=== PATIENT | male | born 1955 | race Caucasian/White ===

== ENCOUNTER 2018-12-16 10:36 | Inpatient (IN) ==
[2018-12-16 11:40] LABS: Baso # (Auto) 0.1 th/mm3 (0.0-0.2); Baso % (Auto) 0.7 % (0.0-2.0); Hematocrit 46.6 % (39.0-51.0); Hemoglobin 15.9 gm/dL (13.0-17.0); Lymph # (Auto) 0.8 th/mm3 (1.0-4.8); Lymph % (Auto) 5.7 % (9.0-44.0); Mean Corpuscular HGB Conc 34.2 % (32.0-36.0); Mean Corpuscular Hemoglobin 29.8 pg (27.0-34.0); Mean Corpuscular Volume 87.1 fL (80.0-100.0); Mean Platelet Volume 7.8 fL (7.0-11.0); Mono % (Auto) 7.5 % (0.0-8.0); Neut # (Auto) 11.7 th/mm3 (1.8-7.7); Neut % (Auto) 86.1 % (16.0-70.0); Platelet Count 353 th/mm3 (150-450); Red Blood Count 5.35 mil/mm3 (4.50-5.90); White Blood Count 13.6 th/mm3 (4.0-11.0)
[2018-12-16 11:50] LABS: Activated Partial Thrombo Time 30.1 sec (23.4-31.7); INR 1.1 Ratio; Prothrombin Time 11.4 sec (9.8-11.6)
[2018-12-16] MEDS ORDERED: Midazolam Inj 5 MG/ML 1 ML Vial IV.PUSH ONE (11:51)
[2018-12-16 12:03] LABS: Albumin 4.2 g/dL (3.4-5.0); Anion Gap 15 meq/L (5-15); Aspartate Aminotransferase 24 U/L (15-37); Blood Urea Nitrogen 38 mg/dL (7-18); Calcium 9.9 mg/dL (8.5-10.1); Carbon Dioxide 23.2 meq/L (21.0-32.0); Chloride 103 meq/L (98-107); Glomerular Filtration Rate 49 mL/min (>89); Glucose,Random 115 mg/dL (74-106); Potassium 3.5 meq/L (3.5-5.1); Sodium 141 meq/L (136-145)
[2018-12-16 12:04] LABS: Alanine Aminotransferase 17 U/L (12-78)
--- NOTE | 2018-12-16 12:11 | CT ---
EXAM DATE: 12/16/2018 12:08 PM EST AGE/SEX: 63 years / Male INDICATIONS: Altered mental status. CLINICAL DATA: This is the patient's initial encounter. Patient reports that signs and symptoms have been present for 2 days and indicates a pain score of 0/10. MEDICAL/SURGICAL HISTORY: . 0 . RADIATION DOSE: 53.35 CTDI (mGy) [place] [facility] [place]20/[place]. . TECHNIQUE: CT of the head without contrast. Using automated exposure control and adjustment of the mA and/or kV according to patient size, radiation dose was kept as low as reasonably achievable to ob tain optimal diagnostic quality images. DICOM format image data is available electronically for revi ew and comparison. FINDINGS: There is central and cortical atrophy with dilatation of ventricular and sulcal spaces. There is no parenchymal hemorrhage, acute infarction or mass lesion identified. Probable old infarct left parieta l occipital region. There are no extra-axial fluid collections appreciated. Significant periventricul ar white matter changes are noted. The posterior fossa is unremarkable with midline fourth ventricle. The portion of the orbits and paranasal sinuses visualized are unremarkable. Extensive basilar arter y calcifications are evident. CONCLUSION: Atrophy, significant periventricular white matter changes, otherwise negative. Christopher Thomas MD FACR . . Electronically signed by: Christopher Thomas MD Board Certified Radiologist 12/16/2018 12:10 PM EST
[2018-12-16 12:14] LABS: Alkaline Phosphatase 84 U/L (45-117); Total Protein 8.5 g/dL (6.4-8.2)
--- NOTE | 2018-12-16 12:15 | XR ---
EXAM DATE: 12/16/2018 12:03 PM EST AGE/SEX: 63 years / Male INDICATIONS: Altered mental status. CLINICAL DATA: This is the patient's initial encounter. Patient reports that signs and symptoms have been present for 1 day and indicates a pain score of Nonresponsive. MEDICAL/SURGICAL HISTORY: Non-responsive. Non-responsive. COMPARISON: No prior exams available for comparison. FINDINGS: Thoracolumbar scoliosis. Asymmetrical apical parenchymal changes. Mild left ventricular hypertrophy No infiltrate or failure. Degenerative changes about both shoulders. CONCLUSION: Asymmetrical apical parenchymal changes worse on the right. Otherwise negative Electronically signed by: Christopher Thomas MD Board Certified Radiologist 12/16/2018 12:13 PM EST
--- NOTE | 2018-12-16 12:35 | CT ---
EXAM DATE: 12/16/2018 12:31 PM EST AGE/SEX: 63 years / Male INDICATIONS: Altered mental status Thrombosis. CLINICAL DATA: This is the patient's initial encounter. Patient reports that signs and symptoms have been present for 2 days and indicates a pain score of 0/10. MEDICAL/SURGICAL HISTORY: . 0 . 0 RADIATION DOSE: 10.05 CTDI (mGy) COMPARISON: [facility] – [place] BRAIN W/O CONTRAST, 05/20/2015. . TECHNIQUE: Volumetric scanning was performed using a multi-row detector CT scanner during bolus infu goldy of 70 ml Omnipaque 350 (iohexol) nonionic water-soluble contrast as a cumulative dose for multi ple exams. The data was post processed with a variety of visualization algorithms including full vo lume maximum intensity projection, multi-planar sliding thin slab reformation, curved planar reformat ion, and surface rendering techniques. Using automated exposure control and adjustment of the mA and /or kV according to patient size, radiation dose was kept as low as reasonably achievable to obtain o ptimal diagnostic quality images. DICOM format image data is available electronically for review and comparison. FINDINGS: There is excellent visualization of the major intracranial arteries out to the second-order branch ve ssels. There is no evidence for aneurysm, vessel truncation or stenosis, and no evidence for vascula r malformation. Minimal apparent calcific plaque mid right vertebral artery. CONCLUSION: 1. Negative for major branch vessel occlusion. . . Electronically signed by: Christopher Thomas MD Board Certified Radiologist 12/16/2018 12:34 PM EST
--- NOTE | 2018-12-16 12:47 | CT ---
EXAM DATE: 12/16/2018 12:41 PM EST AGE/SEX: 63 years / Male INDICATIONS: Altered mental status Thrombosis. CLINICAL DATA: This is the patient's initial encounter. Patient reports that signs and symptoms have been present for 2 days and indicates a pain score of 0/10. MEDICAL/SURGICAL HISTORY: . 0 . 0 RADIATION DOSE: 10.05 CTDI (mGy) COMPARISON: No prior exams available for comparison. TECHNIQUE: Volumetric scanning was performed using a multirow detector CT scanner during bolus infus ion of 70 ml Omnipaque 350 (iohexol) nonionic water-soluble contrast as a cumulative dose for multip le exams. The data was postprocessed with a variety of visualization algorithms including full-volu me maximum intensity projection, multiplanar sliding thin-slab reformation, curved-planar reformation , and surface-rendering techniques. Using automated exposure control and adjustment of the mA and/or kV according to patient size, radiation dose was kept as low as reasonably achievable to obtain opti mal diagnostic quality images. DICOM format image data is available electronically for review and co mparison. FINDINGS: Aortic Arch: Minimal calcific plaque at the origin of the right innominate and left subclavian arter y. Right Carotid: Minimal extraluminal calcific plaque origin of the right internal carotid without ulc eration or stenosis. Left Carotid: Similar calcific plaque is seen on the left external the lumen without calcification o r stenosis. Vertebrals: Minimal calcific plaque mid left vertebral without stenosis. Basilar artery is patent. Percent stenosis is calculated using the diameter of the stenotic region over the diameter of the nor mal distal internal carotid artery. CONCLUSION: 1. Minimal atherosclerotic calcific vascular disease. No hemodynamically significant stenosis Electronically signed by: Christopher Thomas MD Board Certified Radiologist 12/16/2018 12:46 PM EST
--- NOTE | 2018-12-16 13:07 | MR ---
EXAM DATE: 12/16/2018 12:36 PM EST AGE/SEX: 63 years / Male INDICATIONS: CVA. CLINICAL DATA: This is the patient's initial encounter. Patient reports that signs and symptoms have been present for 1 day and indicates a pain score of 0/10. MEDICAL/SURGICAL HISTORY: None. None. COMPARISON: [facility] – [place], CTA HEAD W CONTRAST W 3D, 12/16/2018. . TECHNIQUE: Multiplanar, multisequence examination of the brain was performed without contrast. FINDINGS: There is extensive restricted diffusion in the distribution of the left middle cerebral artery indica ting acute infarct. This involves the anterior and posterior divisions. There is correlating signal a bnormality on the T2-weighted images and correlating signal abnormality on the ADC map images. No dinorah dence of significant mass effect or midline shift. Ventricles, sulci, and cisterns are mildly promine nt indicating diffuse atrophy. Chronic small vessel white matter ischemic change noted. Multiple smal l foci of magnetic susceptibility artifact scattered diffusely indicating history of microhemorrhages . No evidence of acute intracranial hemorrhage. No intracranial mass lesion. CONCLUSION: 1. Restricted diffusion and left MCA distribution indicating acute left MCA infarct. 2. No evidence of mass effect or herniation. Findings were discussed with Dr. Moore by Dr. Darden. Electronically signed by: Grant Oneal MD Board Certified Radiologist 12/16/2018 2:55 PM EST
[2018-12-16] MEDS ORDERED: Labetalol HCl Inj 100 MG/20 ML Vial IV.PUSH PRN ×2 (13:12→16:54)
[2018-12-16] MEDS ORDERED: Dextrose 50% in Water 50 ML Vial IV.PUSH PRN (13:12)
--- NOTE | 2018-12-16 13:13 | ED ---
HPI General Chief complaint: Neuro Symptoms/Deficit Stated complaint: Poss neuro/evac Time Seen by Provider: 12/16/18 10:58 History of Present Illness HPI narrative: Patient is a 63-year-old male presents emergency department inability to talk and "not being all there" for the past 3 days. It Tuesday now and according to family the patient on Tuesday had not been able to speak. Since yesterday he has been acting like he is not "all there". That was about 10 AM in the morning yesterday. On arrival patient is a phasic and unable to give any history. Is calmly by his and his father, father states that he never goes to the physician has not had a checkup in years. He does not drink but he does smoke. He does not use any substances. Family states prior to this he was just fine. Additional history is limited secondary to patient's altered mental status Related Data Home Medications Medication Instructions Recorded Confirmed No Known Home Medications 12/16/18 12/16/18 Allergies Allergy/AdvReac Type Severity Reaction Status Date / Time No Known Allergies Allergy Verified 12/16/18 13:02 Review of Systems ROS: all other systems reviewed are negative [facility] Medical History Medical History Chronic back pain (Acute) Tobacco abuse (Acute) Surgical History Surgical History No history of previous surgery (Acute) Family History Family History Father Stroke Mother Pulmonary embolism Sister Spina bifida Other Family history non-contributory Social History Social History Substance History: Active Abuse Second Hand Smoke Exposure: Yes Smoking Status: Current every day smoker Tobacco Type: Cigarettes How Often Do You Have a Drink Containing Alcohol: Never Recent Travel in [facility] within the Last 8 Weeks: No Recent Out of Country Travel within the Last 8 Weeks: No Substance Abuse Detail Marijuana: Substance Use Status: Active Route Used Substance Abuse: Inhalation Immunization History Tetanus Immunization: Unsure Exam Narrative Exam Narrative: GENERAL: WD/thin, clearly altered SKIN: Focused skin assessment warm/dry. HEAD: Atraumatic. Normocephalic. EYES: Pupils equal and round. No scleral icterus. No injection or drainage. ENT: No nasal bleeding or discharge. Mucous membranes pink and moist. NECK: Trachea midline. No JVD. CARDIOVASCULAR: Regular rate and rhythm. No murmur appreciated. RESPIRATORY: No accessory muscle use. Clear to auscultation. Breath sounds equal bilaterally. GASTROINTESTINAL: Abdomen soft, non-tender, nondistended. Hepatic and splenic margins not palpable. MUSCULOSKELETAL: No obvious deformities. No clubbing. No cyanosis. No edema. NEUROLOGICAL: Awake and alert. Clearly confused, GCS is [id number], patient moves all 4 extremities, he will therapy coordinator my hands when asked and is little weak on the right side 4 out of 5, he will not participate with drift testing, we will not participate with cranial nerve testing and will not open his mouth when asked. His NIH is therefore difficult to interpret but is at least 8. PSYCHIATRIC: Unable to assess Course Initial Documented Vital Signs Temperature 98.8 F 12/16/18 10:46 Pulse Rate 97 H 12/16/18 10:46 Respiratory Rate 16 12/16/18 10:46 Blood Pressure 211/146 H 12/16/18 10:46 Pulse Oximetry 96 12/16/18 10:46 Last Documented Vital Signs Temperature 98.2 F 12/18/18 16:00 Pulse Rate 101 H 12/18/18 17:00 Respiratory Rate 34 H 12/18/18 17:00 Blood Pressure 147/93 H 12/18/18 17:00 Pulse Oximetry 97 12/18/18 17:00 Critical Care Time Critical Care Time: Yes Total Critical Care Time: 35 Attestation: Aggregate critical care time was 35 minutes. Time to perform other separately billable procedures was not included in the critical care time. My time did not include minutes spent treating any other patients simultaneously or on activities that did not directly contribute to the patient's treatment. The services I provided to this patient were to treat and/or prevent clinically significant deterioration that could result in: , disability, organ failure I provided critical care services requiring my management, as noted below: Chart data review, documentation time, medication orders and management, vital sign assessments/reviewing monitor data, ordering and reviewing lab tests, ordering and interpreting/reviewing x-rays and diagnostic studies, care of the patient and discussion of the patient with the admitting physicians. NIH Stroke Scale NIH Stroke Scale Level of Consciousness: 0-Alert Orientation Questions: 2-Neither task correct Responds to Commands: 2-Neither task correct Gaze Eye Movement: 1-Partial gaze palsy Visual Gee: 0-No visual field defect Facial Movement: 0-Normal Motor Functions Arm LEFT: 0-No drift Motor Functions Arm RIGHT: 0-No drift Motor Functions Leg LEFT: 0-No drift Motor Functions Leg RIGHT: 0-No drift Limb Ataxia: 0-No ataxia Sensory Loss: 0-No sensory loss Best Language: 3-Mute or global aphasia Articulation: UN-Intubated / Barriers Extinction or Inattention Sensory: 0-Absent Total: 8 Medical Decision Making MDM Narrative Medical decision making narrative: Patient room to the emergency department, does not meet stroke alert criteria is a symptoms been going on for 2-3 days. Apparently acutely worsened yesterday but again that was more than 24 hours ago. Patient was taken his expediently as possible to CAT scan CTA of the head and neck negative, MRI does show acute left hemispheric MCA type stroke. Patient was discussed at length with Desiree Coates and the hospiatlist The latter will admit. Patient will be given aspirin, normal saline bolus for his probable dehydration as he has not been taking good p.o. Medical Screen Exam Complete: Yes Emergency Medical Condition: Yes Lab Data Result diagrams: 12/18/18 08:09 12/18/18 08:09 Lab Results 12/16/18 12/16/18 12/16/18 Range/Units 11:15 11:15 11:15 WBC 13.6 H (4.0-11.0) th/mm3 RBC 5.35 (4.50-5.90) mil/mm3 Hgb 15.9 (13.0-17.0) gm/dL Hct 46.6 (39.0-51.0) % MCV 87.1 (80.0-100.0) fL MCH 29.8 (27.0-34.0) pg MCHC 34.2 (32.0-36.0) % RDW 15.0 (11.6-17.2) % Plt Count 353 (150-450) th/mm3 MPV 7.8 (7.0-11.0) fL Prelim Diff (Auto) Neut % (Auto) 86.1 H (16.0-70.0) % Lymph % (Auto) 5.7 L (9.0-44.0) % [place] % (Auto) 7.5 (0.0-8.0) % Eos % (Auto) 0.0 (0.0-4.0) % Baso % (Auto) 0.7 (0.0-2.0) % Neut # (Auto) 11.7 H (1.8-7.7) th/mm3 Lymph # (Auto) 0.8 L (1.0-4.8) th/mm3 [place] # (Auto) 1.0 H (0.0-0.9) th/mm3 Eos # (Auto) 0.0 (0.0-0.4) th/mm3 Baso # (Auto) 0.1 (0.0-0.2) th/mm3 WBC Differential . Seg Neuts % (Manual) (16-70) % Band Neuts % (Manual) (0-6) % Monocytes % (Manual) (0-8) % Abs Neuts (Manual) (1.8-7.7) th/mm3 Differential Comment Auto diff final Platelet Estimate (Normal) Platelet Morphology (Normal) PT 11.4 (9.8-11.6) sec INR 1.1 Ratio APTT 30.1 (23.4-31.7) sec Sodium 141 (136-145) meq/L Potassium 3.5 (3.5-5.1) meq/L Chloride 103 (98-107) meq/L Carbon Dioxide 23.2 (21.0-32.0) meq/L Anion Gap 15 (5-15) meq/L BUN 38 H (7-18) mg/dL Creatinine 1.45 H (0.60-1.30) mg/dL Estimated GFR 49 L (>89) mL/min POC Glucose (68-110) mg/dl Random Glucose 115 H (74-106) mg/dL Hemoglobin A1c (4.3-6.0) % Calcium 9.9 (8.5-10.1) mg/dL Phosphorus (2.5-4.9) mg/dL Magnesium 2.0 (1.5-2.5) mg/dL Total Bilirubin 1.5 H (0.2-1.0) mg/dL AST 24 (15-37) U/L ALT 17 (12-78) U/L Alkaline Phosphatase 84 (45-117) U/L Ammonia (11-32) mcmol/L Troponin I Less than 0.02 L (0.02-0.05) ng/mL Total Protein 8.5 H (6.4-8.2) g/dL Albumin 4.2 (3.4-5.0) g/dL TSH 2.180 (0.358-3.740) uIU/mL Urine Color (Yellw/Straw) Urine Clarity (Clear) Urine pH (5.0-8.5) Ur Specific [place] (1.002-1.035) Urine Protein (Neg-Trace) mg/dL Urine Glucose (UA) (Negative) mg/dL Urine Ketones (Negative) mg/dL Urine Occult Blood (Negative) Urine Nitrate (Negative) Urine Bilirubin (Negative) Urine Urobilinogen (Less than 2) mg/dL Ur Leukocyte Esterase (Negative) Urine RBC (0-3) /hpf Urine WBC (0-5) /hpf Hyaline Casts (0-3) /lpf Urine Mucus (Occasional) /lpf Micro UA Comment Ur Microscopic Review Urine Culture Comments Nasal Screen MRSA (PCR) (Negative) 12/16/18 12/16/18 12/16/18 Range/Units 11:15 13:50 20:04 WBC (4.0-11.0) th/mm3 RBC (4.50-5.90) mil/mm3 Hgb (13.0-17.0) gm/dL Hct (39.0-51.0) % MCV (80.0-100.0) fL MCH (27.0-34.0) pg MCHC (32.0-36.0) % RDW (11.6-17.2) % Plt Count (150-450) th/mm3 MPV (7.0-11.0) fL Prelim Diff (Auto) Neut % (Auto) (16.0-70.0) % Lymph % (Auto) (9.0-44.0) % [place] % (Auto) (0.0-8.0) % Eos % (Auto) (0.0-4.0) % Baso % (Auto) (0.0-2.0) % Neut # (Auto) (1.8-7.7) th/mm3 Lymph # (Auto) (1.0-4.8) th/mm3 [place] # (Auto) (0.0-0.9) th/mm3 Eos # (Auto) (0.0-0.4) th/mm3 Baso # (Auto) (0.0-0.2) th/mm3 WBC Differential Seg Neuts % (Manual) (16-70) % Band Neuts % (Manual) (0-6) % Monocytes % (Manual) (0-8) % Abs Neuts (Manual) (1.8-7.7) th/mm3 Differential Comment Platelet Estimate (Normal) Platelet Morphology (Normal) PT (9.8-11.6) sec INR Ratio APTT (23.4-31.7) sec Sodium (136-145) meq/L Potassium (3.5-5.1) meq/L Chloride (98-107) meq/L Carbon Dioxide (21.0-32.0) meq/L Anion Gap (5-15) meq/L BUN (7-18) mg/dL Creatinine (0.60-1.30) mg/dL Estimated GFR (>89) mL/min POC Glucose 141 H (68-110) mg/dl Random Glucose (74-106) mg/dL Hemoglobin A1c (4.3-6.0) % Calcium (8.5-10.1) mg/dL Phosphorus (2.5-4.9) mg/dL Magnesium (1.5-2.5) mg/dL Total Bilirubin (0.2-1.0) mg/dL AST (15-37) U/L ALT (12-78) U/L Alkaline Phosphatase (45-117) U/L Ammonia 18 (11-32) mcmol/L Troponin I (0.02-0.05) ng/mL Total Protein (6.4-8.2) g/dL Albumin (3.4-5.0) g/dL TSH (0.358-3.740) uIU/mL Urine Color Yellow (Yellw/Straw) Urine Clarity Clear (Clear) Urine pH 5.0 (5.0-8.5) Ur Specific [place] 1.035 (1.002-1.035) Urine Protein 30 H (Neg-Trace) mg/dL Urine Glucose (UA) Negative (Negative) mg/dL Urine Ketones 20 (Negative) mg/dL Urine Occult Blood Moderate H (Negative) Urine Nitrate Negative (Negative) Urine Bilirubin Negative (Negative) Urine Urobilinogen Less than 2 (Less than 2) mg/dL Ur Leukocyte Esterase Negative (Negative) Urine RBC 7 H (0-3) /hpf Urine WBC 2 (0-5) /hpf Hyaline Casts 3 (0-3) /lpf Urine Mucus Few H (Occasional) /lpf Micro UA Comment Cath-culture not ind Ur Microscopic Review Not Reportable Urine Culture Comments Cath-cult not ind Nasal Screen MRSA (PCR) (Negative) 12/16/18 12/17/18 12/17/18 Range/Units 22:30 04:55 04:55 WBC 21.6 H D (4.0-11.0) th/mm3 RBC 5.10 (4.50-5.90) mil/mm3 Hgb 15.0 (13.0-17.0) gm/dL Hct 44.5 (39.0-51.0) % MCV 87.4 (80.0-100.0) fL MCH 29.3 (27.0-34.0) pg MCHC 33.6 (32.0-36.0) % RDW 15.1 (11.6-17.2) % Plt Count 331 (150-450) th/mm3 MPV 7.4 (7.0-11.0) fL Prelim Diff (Auto) Neut % (Auto) 88.7 H (16.0-70.0) % Lymph % (Auto) 2.7 L (9.0-44.0) % [place] % (Auto) 7.6 (0.0-8.0) % Eos % (Auto) 0.0 (0.0-4.0) % Baso % (Auto) 1.0 (0.0-2.0) % Neut # (Auto) 19.2 H (1.8-7.7) th/mm3 Lymph # (Auto) 0.6 L (1.0-4.8) th/mm3 [place] # (Auto) 1.6 H (0.0-0.9) th/mm3 Eos # (Auto) 0.0 (0.0-0.4) th/mm3 Baso # (Auto) 0.2 (0.0-0.2) th/mm3 WBC Differential . Seg Neuts % (Manual) (16-70) % Band Neuts % (Manual) (0-6) % Monocytes % (Manual) (0-8) % Abs Neuts (Manual) (1.8-7.7) th/mm3 Differential Comment Auto diff final Platelet Estimate (Normal) Platelet Morphology (Normal) PT (9.8-11.6) sec INR Ratio APTT (23.4-31.7) sec Sodium (136-145) meq/L Potassium (3.5-5.1) meq/L Chloride (98-107) meq/L Carbon Dioxide (21.0-32.0) meq/L Anion Gap (5-15) meq/L BUN (7-18) mg/dL Creatinine (0.60-1.30) mg/dL Estimated GFR (>89) mL/min POC Glucose (68-110) mg/dl Random Glucose (74-106) mg/dL Hemoglobin A1c 5.3 (4.3-6.0) % Calcium (8.5-10.1) mg/dL Phosphorus (2.5-4.9) mg/dL Magnesium (1.5-2.5) mg/dL Total Bilirubin (0.2-1.0) mg/dL AST (15-37) U/L ALT (12-78) U/L Alkaline Phosphatase (45-117) U/L Ammonia (11-32) mcmol/L Troponin I (0.02-0.05) ng/mL Total Protein (6.4-8.2) g/dL Albumin (3.4-5.0) g/dL TSH (0.358-3.740) uIU/mL Urine Color (Yellw/Straw) Urine Clarity (Clear) Urine pH (5.0-8.5) Ur Specific [place] (1.002-1.035) Urine Protein (Neg-Trace) mg/dL Urine Glucose (UA) (Negative) mg/dL Urine Ketones (Negative) mg/dL Urine Occult Blood (Negative) Urine Nitrate (Negative) Urine Bilirubin (Negative) Urine Urobilinogen (Less than 2) mg/dL Ur Leukocyte Esterase (Negative) Urine RBC (0-3) /hpf Urine WBC (0-5) /hpf Hyaline Casts (0-3) /lpf Urine Mucus (Occasional) /lpf Micro UA Comment Ur Microscopic Review Urine Culture Comments Nasal Screen MRSA (PCR) Not detected (Negative) 12/17/18 12/17/18 12/17/18 Range/Units 04:55 04:55 08:39 WBC (4.0-11.0) th/mm3 RBC (4.50-5.90) mil/mm3 Hgb (13.0-17.0) gm/dL Hct (39.0-51.0) % MCV (80.0-100.0) fL MCH (27.0-34.0) pg MCHC (32.0-36.0) % RDW (11.6-17.2) % Plt Count (150-450) th/mm3 MPV (7.0-11.0) fL Prelim Diff (Auto) Neut % (Auto) (16.0-70.0) % Lymph % (Auto) (9.0-44.0) % [place] % (Auto) (0.0-8.0) % Eos % (Auto) (0.0-4.0) % Baso % (Auto) (0.0-2.0) % Neut # (Auto) (1.8-7.7) th/mm3 Lymph # (Auto) (1.0-4.8) th/mm3 [place] # (Auto) (0.0-0.9) th/mm3 Eos # (Auto) (0.0-0.4) th/mm3 Baso # (Auto) (0.0-0.2) th/mm3 WBC Differential Seg Neuts % (Manual) (16-70) % Band Neuts % (Manual) (0-6) % Monocytes % (Manual) (0-8) % Abs Neuts (Manual) (1.8-7.7) th/mm3 Differential Comment Platelet Estimate (Normal) Platelet Morphology (Normal) PT 11.7 H (9.8-11.6) sec INR 1.2 Ratio APTT 29.9 (23.4-31.7) sec Sodium 146 H (136-145) meq/L Potassium 3.1 L (3.5-5.1) meq/L Chloride 112 H D (98-107) meq/L Carbon Dioxide 22.9 (21.0-32.0) meq/L Anion Gap 11 (5-15) meq/L BUN 27 H (7-18) mg/dL Creatinine 1.07 (0.60-1.30) mg/dL Estimated GFR 70 L (>89) mL/min POC Glucose 129 H (68-110) mg/dl Random Glucose 120 H (74-106) mg/dL Hemoglobin A1c (4.3-6.0) % Calcium 8.7 D (8.5-10.1) mg/dL Phosphorus 1.6 L (2.5-4.9) mg/dL Magnesium 1.7 (1.5-2.5) mg/dL Total Bilirubin 2.2 H (0.2-1.0) mg/dL AST 39 H (15-37) U/L ALT 20 (12-78) U/L Alkaline Phosphatase 77 (45-117) U/L Ammonia (11-32) mcmol/L Troponin I (0.02-0.05) ng/mL Total Protein 7.7 D (6.4-8.2) g/dL Albumin 3.8 (3.4-5.0) g/dL TSH (0.358-3.740) uIU/mL Urine Color (Yellw/Straw) Urine Clarity (Clear) Urine pH (5.0-8.5) Ur Specific [place] (1.002-1.035) Urine Protein (Neg-Trace) mg/dL Urine Glucose (UA) (Negative) mg/dL Urine Ketones (Negative) mg/dL Urine Occult Blood (Negative) Urine Nitrate (Negative) Urine Bilirubin (Negative) Urine Urobilinogen (Less than 2) mg/dL Ur Leukocyte Esterase (Negative) Urine RBC (0-3) /hpf Urine WBC (0-5) /hpf Hyaline Casts (0-3) /lpf Urine Mucus (Occasional) /lpf Micro UA Comment Ur Microscopic Review Urine Culture Comments Nasal Screen MRSA (PCR) (Negative) 12/17/18 12/17/18 12/17/18 Range/Units 12:39 17:29 19:42 WBC (4.0-11.0) th/mm3 RBC (4.50-5.90) mil/mm3 Hgb (13.0-17.0) gm/dL Hct (39.0-51.0) % MCV (80.0-100.0) fL MCH (27.0-34.0) pg MCHC (32.0-36.0) % RDW (11.6-17.2) % Plt Count (150-450) th/mm3 MPV (7.0-11.0) fL Prelim Diff (Auto) Neut % (Auto) (16.0-70.0) % Lymph % (Auto) (9.0-44.0) % [place] % (Auto) (0.0-8.0) % Eos % (Auto) (0.0-4.0) % Baso % (Auto) (0.0-2.0) % Neut # (Auto) (1.8-7.7) th/mm3 Lymph # (Auto) (1.0-4.8) th/mm3 [place] # (Auto) (0.0-0.9) th/mm3 Eos # (Auto) (0.0-0.4) th/mm3 Baso # (Auto) (0.0-0.2) th/mm3 WBC Differential Seg Neuts % (Manual) (16-70) % Band Neuts % (Manual) (0-6) % Monocytes % (Manual) (0-8) % Abs Neuts (Manual) (1.8-7.7) th/mm3 Differential Comment Platelet Estimate (Normal) Platelet Morphology (Normal) PT (9.8-11.6) sec INR Ratio APTT (23.4-31.7) sec Sodium 149 H (136-145) meq/L Potassium 3.4 L (3.5-5.1) meq/L Chloride 116 H (98-107) meq/L Carbon Dioxide 20.6 L (21.0-32.0) meq/L Anion Gap 12 (5-15) meq/L BUN 25 H (7-18) mg/dL Creatinine 1.13 (0.60-1.30) mg/dL Estimated GFR 66 L (>89) mL/min POC Glucose 123 H 127 H (68-110) mg/dl Random Glucose 116 H (74-106) mg/dL Hemoglobin A1c (4.3-6.0) % Calcium 8.5 (8.5-10.1) mg/dL Phosphorus 2.4 L (2.5-4.9) mg/dL Magnesium 2.0 (1.5-2.5) mg/dL Total Bilirubin 3.3 H (0.2-1.0) mg/dL AST 49 H (15-37) U/L ALT 22 (12-78) U/L Alkaline Phosphatase 68 (45-117) U/L Ammonia (11-32) mcmol/L Troponin I (0.02-0.05) ng/mL Total Protein 7.0 D (6.4-8.2) g/dL Albumin 3.3 L (3.4-5.0) g/dL TSH (0.358-3.740) uIU/mL Urine Color (Yellw/Straw) Urine Clarity (Clear) Urine pH (5.0-8.5) Ur Specific [place] (1.002-1.035) Urine Protein (Neg-Trace) mg/dL Urine Glucose (UA) (Negative) mg/dL Urine Ketones (Negative) mg/dL Urine Occult Blood (Negative) Urine Nitrate (Negative) Urine Bilirubin (Negative) Urine Urobilinogen (Less than 2) mg/dL Ur Leukocyte Esterase (Negative) Urine RBC (0-3) /hpf Urine WBC (0-5) /hpf Hyaline Casts (0-3) /lpf Urine Mucus (Occasional) /lpf Micro UA Comment Ur Microscopic Review Urine Culture Comments Nasal Screen MRSA (PCR) (Negative) 12/17/18 12/18/18 12/18/18 Range/Units 21:19 08:09 08:09 WBC 30.1 H (4.0-11.0) th/mm3 RBC 4.67 (4.50-5.90) mil/mm3 Hgb 14.1 (13.0-17.0) gm/dL Hct 39.9 (39.0-51.0) % MCV 85.3 (80.0-100.0) fL MCH 30.2 (27.0-34.0) pg MCHC 35.4 (32.0-36.0) % RDW 15.1 (11.6-17.2) % Plt Count 289 (150-450) th/mm3 MPV 7.8 (7.0-11.0) fL Prelim Diff (Auto) Slide review pending Neut % (Auto) 93.5 H (16.0-70.0) % Lymph % (Auto) 1.8 L (9.0-44.0) % [place] % (Auto) 4.5 (0.0-8.0) % Eos % (Auto) 0.0 (0.0-4.0) % Baso % (Auto) 0.2 (0.0-2.0) % Neut # (Auto) 28.1 H (1.8-7.7) th/mm3 Lymph # (Auto) 0.6 L (1.0-4.8) th/mm3 [place] # (Auto) 1.3 H (0.0-0.9) th/mm3 Eos # (Auto) 0.0 (0.0-0.4) th/mm3 Baso # (Auto) 0.1 (0.0-0.2) th/mm3 WBC Differential Manual diff final Seg Neuts % (Manual) 95 H (16-70) % Band Neuts % (Manual) 1 (0-6) % Monocytes % (Manual) 4 (0-8) % Abs Neuts (Manual) 28.9 H (1.8-7.7) th/mm3 Differential Comment . Platelet Estimate Normal (Normal) Platelet Morphology Normal (Normal) PT (9.8-11.6) sec INR Ratio APTT (23.4-31.7) sec Sodium 150 H (136-145) meq/L Potassium 3.2 L (3.5-5.1) meq/L Chloride 119 H (98-107) meq/L Carbon Dioxide 21.0 (21.0-32.0) meq/L Anion Gap 10 (5-15) meq/L BUN 31 H (7-18) mg/dL Creatinine 1.19 (0.60-1.30) mg/dL Estimated GFR 62 L (>89) mL/min POC Glucose 138 H (68-110) mg/dl Random Glucose 135 H (74-106) mg/dL Hemoglobin A1c (4.3-6.0) % Calcium 8.4 L (8.5-10.1) mg/dL Phosphorus 2.8 (2.5-4.9) mg/dL Magnesium 1.9 (1.5-2.5) mg/dL Total Bilirubin 3.8 H (0.2-1.0) mg/dL AST 52 H (15-37) U/L ALT 20 (12-78) U/L Alkaline Phosphatase 71 (45-117) U/L Ammonia (11-32) mcmol/L Troponin I (0.02-0.05) ng/mL Total Protein 7.1 (6.4-8.2) g/dL Albumin 3.1 L (3.4-5.0) g/dL TSH (0.358-3.740) uIU/mL Urine Color (Yellw/Straw) Urine Clarity (Clear) Urine pH (5.0-8.5) Ur Specific [place] (1.002-1.035) Urine Protein (Neg-Trace) mg/dL Urine Glucose (UA) (Negative) mg/dL Urine Ketones (Negative) mg/dL Urine Occult Blood (Negative) Urine Nitrate (Negative) Urine Bilirubin (Negative) Urine Urobilinogen (Less than 2) mg/dL Ur Leukocyte Esterase (Negative) Urine RBC (0-3) /hpf Urine WBC (0-5) /hpf Hyaline Casts (0-3) /lpf Urine Mucus (Occasional) /lpf Micro UA Comment Ur Microscopic Review Urine Culture Comments Nasal Screen MRSA (PCR) (Negative) 12/18/18 12/18/18 Range/Units 08:24 11:10 WBC (4.0-11.0) th/mm3 RBC (4.50-5.90) mil/mm3 Hgb (13.0-17.0) gm/dL Hct (39.0-51.0) % MCV (80.0-100.0) fL MCH (27.0-34.0) pg MCHC (32.0-36.0) % RDW (11.6-17.2) % Plt Count (150-450) th/mm3 MPV (7.0-11.0) fL Prelim Diff (Auto) Neut % (Auto) (16.0-70.0) % Lymph % (Auto) (9.0-44.0) % [place] % (Auto) (0.0-8.0) % Eos % (Auto) (0.0-4.0) % Baso % (Auto) (0.0-2.0) % Neut # (Auto) (1.8-7.7) th/mm3 Lymph # (Auto) (1.0-4.8) th/mm3 [place] # (Auto) (0.0-0.9) th/mm3 Eos # (Auto) (0.0-0.4) th/mm3 Baso # (Auto) (0.0-0.2) th/mm3 WBC Differential Seg Neuts % (Manual) (16-70) % Band Neuts % (Manual) (0-6) % Monocytes % (Manual) (0-8) % Abs Neuts (Manual) (1.8-7.7) th/mm3 Differential Comment Platelet Estimate (Normal) Platelet Morphology (Normal) PT (9.8-11.6) sec INR Ratio APTT (23.4-31.7) sec Sodium (136-145) meq/L Potassium (3.5-5.1) meq/L Chloride (98-107) meq/L Carbon Dioxide (21.0-32.0) meq/L Anion Gap (5-15) meq/L BUN (7-18) mg/dL Creatinine (0.60-1.30) mg/dL Estimated GFR (>89) mL/min POC Glucose 125 H 124 H (68-110) mg/dl Random Glucose (74-106) mg/dL Hemoglobin A1c (4.3-6.0) % Calcium (8.5-10.1) mg/dL Phosphorus (2.5-4.9) mg/dL Magnesium (1.5-2.5) mg/dL Total Bilirubin (0.2-1.0) mg/dL AST (15-37) U/L ALT (12-78) U/L Alkaline Phosphatase (45-117) U/L Ammonia (11-32) mcmol/L Troponin I (0.02-0.05) ng/mL Total Protein (6.4-8.2) g/dL Albumin (3.4-5.0) g/dL TSH (0.358-3.740) uIU/mL Urine Color (Yellw/Straw) Urine Clarity (Clear) Urine pH (5.0-8.5) Ur Specific [place] (1.002-1.035) Urine Protein (Neg-Trace) mg/dL Urine Glucose (UA) (Negative) mg/dL Urine Ketones (Negative) mg/dL Urine Occult Blood (Negative) Urine Nitrate (Negative) Urine Bilirubin (Negative) Urine Urobilinogen (Less than 2) mg/dL Ur Leukocyte Esterase (Negative) Urine RBC (0-3) /hpf Urine WBC (0-5) /hpf Hyaline Casts (0-3) /lpf Urine Mucus (Occasional) /lpf Micro UA Comment Ur Microscopic Review Urine Culture Comments Nasal Screen MRSA (PCR) (Negative) Imaging Data Radiologist's impression: Head CT 12/16/18 11:09 CONCLUSION: Atrophy, significant periventricular white matter changes, otherwise negative. Christopher Thomas MD FACR . . Chest X-Ray 12/16/18 11:23 CONCLUSION: Asymmetrical apical parenchymal changes worse on the right. Otherwise negative Head CTA 12/16/18 12:04 CONCLUSION: 1. Negative for major branch vessel occlusion. . . Neck CTA 12/16/18 12:04 CONCLUSION: 1. Minimal atherosclerotic calcific vascular disease. No hemodynamically significant stenosis Head MRI 12/16/18 12:20 CONCLUSION: 1. Restricted diffusion and left MCA distribution indicating acute left MCA infarct. 2. No evidence of mass effect or herniation. Findings were discussed with Dr. Moore by Dr. Darden. Head CT 12/18/18 06:00 CONCLUSION: 1. Evolving left middle cerebral artery distribution infarct. 2. No midline shift. . . Chest X-Ray 12/18/18 09:33 CONCLUSION: Suspected edema in the mid and lower lungs. Discharge Plan Discharge Disposition Patient Disposition: ED Admit(ED Internal Use Only) Discharge Condition Condition: Fair Discharge Order Discharge Orders: Discharge Order (Routine); Ordered 12/18/18 Ordered By: Rocky Haskins ED Use Only Admit Order (Routine); Ordered 12/16/18 Ordered By: Nadeem Bravo Physicians Team ED Provider: Nadeem Bravo Primary Care Provider: Primary Care Shyann Hannon Attending Provider: Manny Huizar Other Providers: Shaun Ramírez ; Evaristo Hoffman Arlen R Status ED Status: Left Department Discharge Information Discharge Date/Time: 12/16/18 15:17
[2018-12-16] MEDS ORDERED: Sod Chloride 0.9% Inj 1,000 ML IV.SIG SCH (13:15)
--- NOTE | 2018-12-16 13:16 | P.HPCC ---
History of Present Illness Service: Critical care medicine Primary Care Physician: No Primary Care Physician Chief Complaint: Altered mental status History of Present Illness: This is a 63-year-old male. Admission 12/16/2018. Past medical history is ongoing tobacco abuse. Patient presents to [facility] with a chief complaint per family of "unable to speaking "not all there, since Tuesday. Onset of symptoms was on Tuesday. They significantly worsened yesterday at about 10 AM. He is currently aphasic and unable to give history. On examination, patient does have a facial droop right-sided #does not stick out tongue.. Strength appears to be slightly weaker right compared to left. Right lower left lower extremity is unable to properly assess due to noncompliance. Unable to assess pronator drift due to noncompliance. Sensation difficult to assess. Unable to test gait. MRI of the brain revealed distal left MCA embolic phenomenon involving the left sylvian region. Possible recanalization of embolization of distal left M1 vessel. Likely embolic source. CT angiogram the head and neck was essentially normal with exception of possible embolic phenomenon involving the left distal M1 segment Is currently having transmitted upper airway sounds like new secretions. He is hypertensive. He received aspirin in the ED. We were asked to admit. - Diagnosis (1) CVA (cerebral vascular accident) (2) Leukocytosis (3) Acute kidney injury (4) Total bilirubin, elevated (5) Tobacco abuse Estimated Total Length of Stay (Days): 5 Plans for Post Hospital Care: Not yet determined Review of Systems unobtainable due to mental status PMFSH - History History Provided By: Family Member - Medical History Medical History: Medical History (Last Reviewed 12/16/18 @ 13:51 by Elida Li Speech Pathology Teacher, SUPERVISOR TUBING) Tobacco abuse - Surgical History Surgical History: Surgical History (Last Reviewed 12/16/18 @ 13:37 by Manny Huizar MD) No history of previous surgery - Family History Family History: Family History (Last Updated 12/16/18 @ 13:37 by Manny Huizar MD) Other Family history non-contributory - Social History I have reviewed the patient's Social History: Yes - Tobacco History Second Hand Smoke Exposure: Yes Tobacco Use In Past 30 Days: Yes Smoking Status: Current every day smoker Tobacco Type: Cigarettes - Alcohol History How Often Do You Have a Drink Containing Alcohol: Never - Substance Use History Substance History: Active Abuse - Substance Use Type Marijuana Status: Active Route Used: Inhalation - Travel History Recent Travel in the [place] Within the Last 8 Weeks: No Recent Travel Out of the Country Within the Last 8 Weeks: No - Immunization History Tetanus Immunization: Unsure Medications and Allergies Active Medications: Active Medications Sodium Chloride (Ns Inj) 1,000 mls @ 1,000 mls/hr IV.SIG BOLUS JOSIAH Stop: 12/16/18 14:14 Sodium Chloride (Ns Flush) 2 ml IV.FLUSH PRN PRN PRN Reason: FLUSH AFTER USING IV ACCESS Allergies Allergy/AdvReac Type Severity Reaction Status Date / Time No Known Allergies Allergy Verified 12/16/18 13:02 Home Medications Medication Instructions Recorded Confirmed Type No Known Home Medications 12/16/18 12/16/18 History Results - Labs CBC & Chem 7: 12/16/18 11:15 12/16/18 11:15 Labs: Short CBC 12/16/18 Range/Units 11:15 WBC 13.6 H (4.0-11.0) th/mm3 Hgb 15.9 (13.0-17.0) gm/dL Hct 46.6 (39.0-51.0) % Plt Count 353 (150-450) th/mm3 BMP 12/16/18 11:15 Sodium 141 Potassium 3.5 Chloride 103 Carbon Dioxide 23.2 BUN 38 H Creatinine 1.45 H Calcium 9.9 Cardiac Enzymes 12/16/18 Range/Units 11:15 Troponin I Less than 0.02 L (0.02-0.05) ng/mL Liver Function 12/16/18 Range/Units 11:15 Total Bilirubin 1.5 H (0.2-1.0) mg/dL AST 24 (15-37) U/L ALT 17 (12-78) U/L Alkaline Phosphatase 84 (45-117) U/L Albumin 4.2 (3.4-5.0) g/dL - Imaging Impressions Head CT 12/16/18 11:09 CONCLUSION: Atrophy, significant periventricular white matter changes, otherwise negative. Christopher Thomas MD FACR . . Chest X-Ray 12/16/18 11:23 CONCLUSION: Asymmetrical apical parenchymal changes worse on the right. Otherwise negative Head CTA 12/16/18 12:04 CONCLUSION: 1. Negative for major branch vessel occlusion. . . Neck CTA 12/16/18 12:04 CONCLUSION: 1. Minimal atherosclerotic calcific vascular disease. No hemodynamically significant stenosis Head MRI 12/16/18 12:20 CONCLUSION: Embolic type disease distal left MCA branches. There could be some recanalized clot in distal M1 on the left. Exam Vital signs: Vital Signs 12/16/18 10:46 Temperature 98.8 F Pulse Rate 97 H Respiratory Rate 16 Blood Pressure 211/146 H Pulse Oximetry 96 Intake & Output 12/15/18 12/16/18 12/16/18 18:59 06:59 18:59 Weight 63.957 kg - Constitutional no acute distress - Routine HEENT Exam Head: Present: normocephalic, atraumatic Eye: Present: EOMI, PERRL, normal accommodation ENT: Present: mucous membranes moist - Routine Neck Exam Present: supple, full ROM. Absent: JVD - Routine Chest/Breast/Axilla Exam Chest wall: Absent: tenderness Breast: Absent: tenderness Axillae: Absent: lymphadenopathy - Routine Respiratory Exam Present: decreased breath sounds, crackles. Absent: accessory muscle use - Routine Cardiovascular Exam Present: RRR, S1, S2. Absent: murmur - Routine Abdominal Exam Present: soft, normoactive bowel sounds - Routine Extremities Exam Absent: cyanosis, clubbing, edema - Routine Skin Exam Present: intact - Routine Neurological Exam Present: alert, motor deficit (Upper 4-5. Left upper quadrant a 5). Absent: oriented X3, CN II-XII intact (Right facial droop), sensory deficit Septic Shock Reassessment Septic shock perfusion: reassessment completed Caprini VTE Risk Assessment Caprini VTE Risk Assessment: Moderate/High Risk (score >= 2) Caprini Risk Assessment Model: Point Value = 1 Point Value = 2 Point Value = 3 Point Value = 5 Age 41-60 Minor surgery BMI > 25 kg/m2 Swollen legs Varicose veins or History of unexplained or recurrent spontaneous Oral contraceptives or hormone replacement Sepsis (< 1 month) Serious lung disease, including pneumonia (< 1 month) Abnormal pulmonary function Acute myocardial infarction Congestive heart failure (< 1 month) History of inflammatory bowel disease Medical patient at bed rest Age 61-74 Arthroscopic surgery Major open surgery (> 45 min) Laparoscopic surgery (> 45 min) Malignancy Confined to bed (> 72 hours) Immobilizing plaster cast Central venous access Age >= 75 History of VTE Family history of VTE Factor V Leiden Prothrombin [id number] Lupus anticoagulant Anticardiolipin antibodies Elevated serum homocysteine Heparin-induced thrombocytopenia Other congenital or acquired thrombophilia Stroke (< 1 month) Elective arthroplasty Hip, pelvis, or leg fracture Acute spinal cord injury (< 1 month) Prophylaxis Regimen: Total Risk Factor Score Risk Level Prophylaxis Regimen 0-1 Low Early ambulation 2 Moderate Order ONE of the following: *Sequential Compression Device (SCD) *Heparin 5000 units SQ BID 3-4 Higher Order ONE of the following medications: *Heparin 5000 units SQ TID *Enoxaparin/Lovenox 40 mg SQ daily (WT < 150 kg, CrCl > 30 mL/min) *Enoxaparin/Lovenox 30 mg SQ daily (WT < 150 kg, CrCl > 10-29 mL/min) *Enoxaparin/Lovenox 30 mg SQ BID (WT < 150 kg, CrCl > 30 mL/min) AND/OR *Sequential Compression Device (SCD) 5 or more Highest Order ONE of the following medications: *Heparin 5000 units SQ TID (Preferred with Epidurals) *Enoxaparin/Lovenox 40 mg SQ daily (WT < 150 kg, CrCl > 30 mL/min) *Enoxaparin/Lovenox 30 mg SQ daily (WT < 150 kg, CrCl > 10-29 mL/min) *Enoxaparin/Lovenox 30 mg SQ BID (WT < 150 kg, CrCl > 30 mL/min) AND *Sequential Compression Device (SCD) Assessment and Plan - Problem List (1) CVA (cerebral vascular accident) Code(s): I63.9 - Cerebral infarction, unspecified Status: Acute (2) Leukocytosis Code(s): D72.829 - Elevated white blood cell count, unspecified Status: Acute (3) Acute kidney injury Code(s): N17.9 - Acute kidney failure, unspecified Status: Acute (4) Total bilirubin, elevated Code(s): R17 - Unspecified jaundice Status: Acute (5) Tobacco abuse Code(s): Z72.0 - Tobacco use Status: Chronic - Assessment and Plan Plan: Neuro/Psych: Subacute left MCA CVA -distal M1 segment MRI brain revealed distal left MCA embolization with recanalization via the left sylvian vessels. CT Bre of the head neck essentially negative with exception of possible embolic events in the distal left M1 segment Neurology consultation. Dr. Ramírez recommends aspirin permissive hypertension up to 220/120 Echocardiogram ordered Check hemoglobin A1c and lipid panel See musculoskeletal Neuro checks Head of bed flat times 12 hours CV: Hypertension As needed nicardipine labetalol to keep systolic blood pressure less than 220, diastolic was less than 120 2D echocardiogram ordered EKG revealed normal sinus rhythm. Normal LA, QRS and QT intervals. Resp: Tobaccoism Nasal cannula to maintain saturations greater than equal to 90% Incentive spirometry while awake As needed albuterol every 2 hours. As needed dyspnea Tobacco cessation education GI: Elevated total bilirubin Repeat liver function test in a.m. Pantoprazole for GI prophylaxis Docusate sodium/senna 1 tablet twice daily for bowel regimen N.p.o. status : Straight catheterization as needed Endo: Sliding scale insulin Accu-Cheks to maintain euglycemia Check hemoglobin A1c TSH within normal limits Renal: Acute kidney injury Monitor urine output Accurate I's and O's Follow BMP in a.m. 12/17 Heme: Leukocytosis Monitor CBC daily. Follow trends. No indication for transfusion of blood products at this time ID: Monitor for signs and symptomatology of infection FEN: Replace electrolytes as clinically indicated MSK: PT/OT/ST evaluate and treat Access -Utilize peripheral IV. Central line if indicated Prophylaxis -GI -pantoprazole -DVT -SCD/heparin subcu Level 3 admission Code Status: Full code Discussed Condition With: Patient. at bedside. Dr. Bravo. Care plan discussed and all questions answered. (1) CVA (cerebral vascular accident) Qualifiers: CVA mechanism: embolism Precerebral and cerebral artery: middle cerebral artery Laterality of affected vessel: left Qualified Code(s): I63.412 - Cerebral infarction due to embolism of left middle cerebral artery (2) Leukocytosis Qualifiers: Leukocytosis type: unspecified Qualified Code(s): D72.829 - Elevated white blood cell count, unspecified
[2018-12-16] MEDS ORDERED: Sodium Phosphate Inj 30 MMOL in Sodium Chlor 0.9% Inj 250 ML IV.SIG PRN (14:01)
[2018-12-16] MEDS ORDERED: Potassium Chlor 20 mEq Premix 20 MEQ/100 ML PIGGYBACK IV.SIG PRN ×2 (14:01)
[2018-12-16] MEDS ORDERED: Potassium Chloride Liq 20 MEQ/15 ML UDC PO PRN ×2 (14:01)
[2018-12-16] MEDS ORDERED: Potassium Phosphate 500 MG Soluble Tablet PO PRN ×2 (14:01)
[2018-12-16] MEDS ORDERED: Potassium Chlor 40 mEq Premix 40 MEQ/100 ML PIGGYBACK IV.SIG PRN ×2 (14:01)
[2018-12-16] MEDS ORDERED: Magnesium Oxide 400 MG Tablet PO PRN (14:01)
[2018-12-16] MEDS ORDERED: Potassium Phosphate Inj 30 MMOL in Sodium Chlor 0.9% Inj 250 ML IV.SIG PRN (14:01)
[2018-12-16] MEDS ORDERED: Magnesium Sulfate Inj 2 GM in Sodium Chlor 0.9% Inj 96 ML IV.SIG PRN (14:01)
[2018-12-16] MEDS ORDERED: Magnesium Sulfate Inj 4 GM in Sodium Chlor 0.9% Inj 92 ML IV.SIG PRN (14:01)
[2018-12-16] MEDS ORDERED: Bisacodyl 10 MG Supp RECTAL PRN (14:02)
[2018-12-16] MEDS ORDERED: Acetaminophen 325 MG Tablet PO PRN (14:02)
[2018-12-16] MEDS ORDERED: Labetalol HCl Inj 20 MG/4 ML Vial ONE (14:20)
[2018-12-16 14:26] LABS: Bilirubin,Urine Negative (Negative); Clarity,Urine Clear (Clear); Color,Urine Yellow (Yellw/Straw); Glucose,Urine (UA) Negative (Negative); Hyaline Casts,Urine 3 /lpf (0-3); Leukocyte Esterase,Urine Negative (Negative); Mucus,Urine Few /lpf (Occasional); Nitrite,Urine Negative (Negative); Specific Gravity,Urine 1.035 (1.002-1.035)
[2018-12-16] MEDS: niCARdipine Inj 25 MG in Sodium Chlor 0.9% Inj 240 ML IV.CONT PRN ×2 (15:47→22:40)
[2018-12-16] MEDS: Multivitamin Inj 10 ML, Thiamine Inj 100 MG, Folic Acid Inj 1 MG in Sodium Chlor 0.9% I... IV.SIG SCH (15:51)
[2018-12-16] MEDS ORDERED: hydrALAZINE HCl Inj 20 MG/ML Vial IV.PUSH PRN (16:54)
[2018-12-16] MEDS ORDERED: Insulin NovoLOG Aspart Correctional Sugar Inj SQ SCH (17:00)
--- NOTE | 2018-12-16 18:07 | ECG ---
Date Performed: 12/16/2018 Time Performed: 11:34:56 PTAGE: 63 years EKG: Sinus rhythm NORMAL ECG NO PREVIOUS TRACING DOCTOR: Conchita Ash Interpretating Date/Time 12/16/2018 18:05:41
[2018-12-16] MEDS: Heparin - SQ 10,000 UNITS/ML Vial SQ SCH (19:17)
[2018-12-16] MEDS: Insulin NovoLOG Aspart Correctional Sugar Inj SQ SCH ×2 (19:17→20:05)
[2018-12-16] MEDS: Sod Chloride 0.9% Inj 1,000 ML IV.CONT SCH (20:06)
[2018-12-16] MEDS: Senna/Docusate Sodium 8.6/50 MG Tablet PO SCH (20:06)
--- NOTE | 2018-12-16 23:25 | P.CONNEU ---
History of Present Illness Consult date: 12/16/18 Reason for Consult: Stroke Alert Primary Care Provider: No Primary Care Physician Chief Complaint: Altered mental status History of Present Illness: A 63-year-old male presents to [facility] ER due to inability to talk and "not being all there" for the past 3 days. He comes on Tuesday and according to family the patient since past Tuesday had not been able to speak. Since yesterday he has been acting like he is not "all there". That was about 10 AM in the morning yesterday. On arrival patient is aphasic and unable to give any history. Is calmly by his and his father, father states that he never goes to the physician has not had a checkup in years. He does not drink but he does smoke. He does not use any substances. Family states prior to this he was just fine. Additional history is limited secondary to patient's altered mental status PMFSH - History History Provided By: Family Member - Medical History Medical History: Medical History (Last Reviewed 12/16/18 @ 13:51 by Elida Li Front Edger, CASE TECHNICIAN) Tobacco abuse - Surgical History Surgical History: Surgical History (Last Reviewed 12/16/18 @ 13:37 by Manny Huizar MD) No history of previous surgery - Family History Family History: Family History (Last Updated 12/16/18 @ 13:37 by Manny Huizar MD) Other Family history non-contributory - Tobacco History Second Hand Smoke Exposure: Yes Tobacco Use In Past 30 Days: Yes Smoking Status: Current every day smoker Tobacco Type: Cigarettes - Alcohol History How Often Do You Have a Drink Containing Alcohol: Never - Substance Use History Substance History: Active Abuse - Substance Use Type Marijuana Status: Active Route Used: Inhalation - Travel History Recent Travel in the [place] Within the Last 8 Weeks: No Recent Travel Out of the Country Within the Last 8 Weeks: No - Immunization History Tetanus Immunization: Unsure Medications and Allergies Active Medications: Active Medications Acetaminophen (Tylenol) 650 mg PO Q6H PRN PRN Reason: PAIN 1-10 AND/OR FEVER >101F Al Hydroxide/Mg Hydroxide (Milk Of Magnesia Liq) 30 ml PO Q12H PRN PRN Reason: Mild Constipation Albuterol (Albuterol Neb (Prn)) 2.5 mg NEB Q2HR NEB PRN PRN Reason: SHORTNESS OF BREATH/WHEEZING Aspirin (Aspirin Supp) 300 mg RECTAL DAILY JOSIAH Bisacodyl (Dulcolax Supp) 10 mg RECTAL DAILY PRN PRN Reason: SEVERE CONSITIPATION Chlorhexidine Gluconate (Chlorhexidine 2% Cloth) 3 pack TOPICAL DAILY@0400 JOSIAH Stop: 12/22/18 03:59 Chlorhexidine Gluconate (Chlorhexidine 2% Cloth) 3 pack TOPICAL DAILY@0400 PRN PRN Reason: Extra cloth needed Stop: 12/22/18 03:59 Dextrose (D50w Vial) 50 ml IV.PUSH UNSCH PRN PRN Reason: PER HYPOGLYCEMIA PROTOCOL Glucagon (Glucagon Inj) 1 mg OTHER UNSCH PRN PRN Reason: for Hypoglycemia Protocol Heparin Sodium (Porcine) (Heparin Inj) 5,000 units SQ Q12H [facility] Last Admin: 12/16/18 19:17 Dose: Not Given Hydralazine HCl (Apresoline Inj) 10 mg IV.PUSH Q1H PRN PRN Reason: Sbp>150, Dbp>90 Nicardipine HCl 25 mg/ Sodium (Chloride) 250 mls @ 25 mls/hr IV.CONT TITRATE PRN; Protocol PRN Reason: Per Protocol Last Admin: 12/16/18 22:40 Dose: 5 mg/hr, 50 mls/hr Multivitamins 10 ml/ Thiamine HCl 100 mg/ Folic Acid 1 mg/Sodium Chloride 511.2 mls @ 125 mls/hr IV.SIG Q24H [facility] Stop: 12/18/18 20:06 Last Infusion: 12/16/18 20:06 Dose: Infused Magnesium Sulfate 4 gm/ Sodium (Chloride) 100 mls @ 50 mls/hr IV.SIG UNSCH PRN PRN Reason: For Magnesium 0.9 - 1.1 mg/dL Magnesium Sulfate 2 gm/ Sodium (Chloride) 100 mls @ 50 mls/hr IV.SIG UNSCH PRN PRN Reason: For Magnesium 1.2 - 1.6 mg/dL Potassium Chloride (Kcl 40 Meq Premix Inj) 40 meq in 100 mls @ 50 mls/hr IV.SIG Q2H PRN PRN Reason: For Potassium 2.8 - 3.2 mEq/L Potassium Chloride (Kcl 20 Meq Premix Inj) 20 meq in 100 mls @ 50 mls/hr IV.SIG Q2H PRN PRN Reason: For Potassium 3.3 - 3.5 mEq/L Potassium Chloride (Kcl 40 Meq Premix Inj) 40 meq in 100 mls @ 25 mls/hr IV.SIG UNSCH PRN PRN Reason: For Potassium 3.3 - 3.5 mEq/L Potassium Chloride (Kcl 20 Meq Premix Inj) 20 meq in 100 mls @ 50 mls/hr IV.SIG Q2H PRN PRN Reason: For Potassium 2.8 - 3.2 mEq/L Potassium Phosphate 30 mmol/ (Sodium Chloride) 260 mls @ 42 mls/hr IV.SIG UNSCH PRN PRN Reason: SEE LABEL COMMENTS Sodium Phosphate 30 mmol/ (Sodium Chloride) 260 mls @ 42 mls/hr IV.SIG UNSCH PRN PRN Reason: For Phosphorus < 2.5 mg/dL Sodium Chloride (Ns Inj) 1,000 mls @ 84 mls/hr IV.CONT .[id number] [facility] Last Admin: 12/16/18 20:06 Dose: 84 mls/hr Insulin Aspart (Novolog Insulin Correctional Sugar Inj) 0 unit SQ [facility]; Protocol Last Admin: 12/16/18 20:05 Dose: Not Given Labetalol HCl (Trandate Inj) 10 mg IV.PUSH Q1H PRN PRN Reason: Sbp>150, Dbp>90, Hr>65 Lactulose (Lactulose Liq) 30 ml PO DAILY PRN PRN Reason: SEVERE CONSITIPATION Magnesium Oxide (Mag-Ox) 800 mg PO UNSCH PRN PRN Reason: For Magnesium 1.2 - 1.6 mg/dL Pantoprazole Sodium (Protonix Inj) 40 mg IV.PUSH DAILY [facility] Potassium Chloride (Kcl Liq) 40 meq PO UNSCH PRN PRN Reason: Potassium level 3.3-3.5 mEq/L Potassium Chloride (Kcl Liq) 40 meq PO UNSCH PRN PRN Reason: POTASSIUM LESS THAN 3.5 Potassium Phosphate (K-Phos Original) 2,000 mg PO Q4H PRN PRN Reason: Phosphorus Less Than 2.5 mg/dL Potassium Phosphate (K-Phos Original) 2,000 mg PO UNSCH PRN PRN Reason: SEE LABEL COMMENTS Pravastatin Sodium (Pravachol) 40 mg PO [facility] Last Admin: 12/16/18 20:06 Dose: Not Given Senna/Docusate Sodium (Claudia-Colace) 1 tab PO BID [facility] Last Admin: 12/16/18 20:06 Dose: Not Given Sennosides (Senokot) 17.2 mg PO Q12H PRN PRN Reason: Moderate Constipation Sodium Chloride (Ns Flush) 2 ml IV.FLUSH BID [facility] Last Admin: 12/16/18 20:06 Dose: 2 ml Sodium Chloride (Ns Flush) 2 ml IV.FLUSH UNSCH PRN PRN Reason: FLUSH AFTER USING IV ACCESS Allergies Allergy/AdvReac Type Severity Reaction Status Date / Time No Known Allergies Allergy Verified 12/16/18 13:02 Home Medications Medication Instructions Recorded Confirmed Type No Known Home Medications 12/16/18 12/16/18 History Exam Vital signs: Vital Signs 12/16/18 10:46 12/16/18 13:09 12/16/18 15:29 Temperature 98.8 F Pulse Rate 97 H Respiratory Rate 16 Blood Pressure 211/146 H 214/139 H Pulse Oximetry 96 96 12/16/18 16:00 12/16/18 16:03 12/16/18 18:01 Temperature Pulse Rate 84 Respiratory Rate 27 H Blood Pressure 214/139 H Pulse Oximetry 92 L 95 12/16/18 18:15 12/16/18 18:30 12/16/18 18:45 Temperature Pulse Rate 83 90 89 Respiratory Rate 26 H 28 H 30 H Blood Pressure 146/92 H 145/95 H 136/88 Pulse Oximetry 93 L 94 L 97 12/16/18 19:00 12/16/18 19:15 12/16/18 19:30 Temperature Pulse Rate 86 90 93 H Respiratory Rate 26 H 27 H 28 H Blood Pressure 143/93 H 141/85 H 135/80 Pulse Oximetry 97 94 L 94 L 12/16/18 19:45 12/16/18 20:00 12/16/18 20:20 Temperature 98.2 F Pulse Rate 87 95 H 98 H Respiratory Rate 26 H 28 H 29 H Blood Pressure 131/79 137/82 131/83 Pulse Oximetry 97 97 92 L 12/16/18 20:25 12/16/18 20:30 12/16/18 20:45 Temperature Pulse Rate 91 H 91 H Respiratory Rate 26 H 28 H Blood Pressure 133/83 134/82 Pulse Oximetry 94 L 95 95 12/16/18 21:00 12/16/18 21:15 12/16/18 21:30 Temperature Pulse Rate 84 90 89 Respiratory Rate 28 H 27 H 30 H Blood Pressure 135/80 136/82 139/85 Pulse Oximetry 97 95 94 L 12/16/18 21:45 12/16/18 22:00 12/16/18 22:15 Temperature Pulse Rate 105 H 93 H 96 H Respiratory Rate 30 H 28 H 26 H Blood Pressure 159/86 H 134/74 148/79 H Pulse Oximetry 90 L 98 96 12/16/18 22:30 12/16/18 22:45 12/16/18 23:00 Temperature Pulse Rate 101 H 98 H 97 H Respiratory Rate 34 H 30 H 30 H Blood Pressure 144/81 H 146/86 H 141/84 H Pulse Oximetry 93 L 95 94 L 12/16/18 23:15 Temperature Pulse Rate 100 H Respiratory Rate 33 H Blood Pressure 143/90 H Pulse Oximetry 94 L Intake & Output 12/16/18 12/16/18 12/17/18 06:59 18:59 06:59 Intake Total 1000 / 1000 761.2 / 761.2 Balance 1000 / 1000 761.2 / 761.2 Weight 63.957 kg Intake: IV 1000 / 1000 761.2 / 761.2 Cardene Inj 25 MG In NS Inj 240 250 / 250 ML @ 2.5 MG/HR 25 mls/hr IV. CONT TITRATE PRN Rx#:[id number] MVI-12 Inj 10 ML Thiamine Inj 511.2 / 511.2 100 MG Folvite Inj 1 MG In NS Inj 500 ML @ 125 mls/hr IV.SIG Q24H JOSIAH Rx#:[id number] NS Inj 1,000 ML @ 1000 mls/hr 1000 / 1000 IV.SIG BOLUS JOSIAH Rx#:[id number] - Constitutional mild distress, thin, cachectic - Routine HEENT Exam Head: Present: normocephalic, atraumatic - Routine Neck Exam Present: supple, full ROM - Routine Cardiovascular Exam Present: RRR, S1, S2 - Routine Abdominal Exam Present: soft, normoactive bowel sounds - Routine Skin Exam Present: intact (awake, AOX0, irritable, aphasic, right facial palsy, right sided visual field defect, no reaction to left sided visual threat, right sided hemiplegia, plantars right upgoing, left downgoing.) Results - Labs CBC & Chem 7: 12/16/18 11:15 12/16/18 11:15 Labs: Laboratory Results - last 24 hr 12/16/18 12/16/18 12/16/18 11:15 11:15 11:15 WBC 13.6 H RBC 5.35 Hgb 15.9 Hct 46.6 MCV 87.1 MCH 29.8 MCHC 34.2 RDW 15.0 Plt Count 353 MPV 7.8 Neut % (Auto) 86.1 H Lymph % (Auto) 5.7 L Centre % (Auto) 7.5 Eos % (Auto) 0.0 Baso % (Auto) 0.7 Neut # (Auto) 11.7 H Lymph # (Auto) 0.8 L Centre # (Auto) 1.0 H Eos # (Auto) 0.0 Baso # (Auto) 0.1 WBC Differential . Differential Comment Auto diff final PT 11.4 INR 1.1 APTT 30.1 Sodium 141 Potassium 3.5 Chloride 103 Carbon Dioxide 23.2 Anion Gap 15 BUN 38 H Creatinine 1.45 H Estimated GFR 49 L POC Glucose Random Glucose 115 H Calcium 9.9 Magnesium 2.0 Total Bilirubin 1.5 H AST 24 ALT 17 Alkaline Phosphatase 84 Ammonia Troponin I Less than 0.02 L Total Protein 8.5 H Albumin 4.2 TSH 2.180 Urine Color Urine Clarity Urine pH Ur Specific [place] Urine Protein Urine Glucose (UA) Urine Ketones Urine Occult Blood Urine Nitrate Urine Bilirubin Urine Urobilinogen Ur Leukocyte Esterase Urine RBC Urine WBC Hyaline Casts Urine Mucus Micro UA Comment Ur Microscopic Review Urine Culture Comments 12/16/18 12/16/18 12/16/18 11:15 13:50 20:04 WBC RBC Hgb Hct MCV MCH MCHC RDW Plt Count MPV Neut % (Auto) Lymph % (Auto) Centre % (Auto) Eos % (Auto) Baso % (Auto) Neut # (Auto) Lymph # (Auto) Centre # (Auto) Eos # (Auto) Baso # (Auto) WBC Differential Differential Comment PT INR APTT Sodium Potassium Chloride Carbon Dioxide Anion Gap BUN Creatinine Estimated GFR POC Glucose 141 H Random Glucose Calcium Magnesium Total Bilirubin AST ALT Alkaline Phosphatase Ammonia 18 Troponin I Total Protein Albumin TSH Urine Color Yellow Urine Clarity Clear Urine pH 5.0 Ur Specific [place] 1.035 Urine Protein 30 H Urine Glucose (UA) Negative Urine Ketones 20 Urine Occult Blood Moderate H Urine Nitrate Negative Urine Bilirubin Negative Urine Urobilinogen Less than 2 Ur Leukocyte Esterase Negative Urine RBC 7 H Urine WBC 2 Hyaline Casts 3 Urine Mucus Few H Micro UA Comment Cath-culture not ind Ur Microscopic Review Not Reportable Urine Culture Comments Cath-cult not ind - Imaging Impressions Head CT 12/16/18 11:09 CONCLUSION: Atrophy, significant periventricular white matter changes, otherwise negative. Christopher Thomas MD FACR . . Chest X-Ray 12/16/18 11:23 CONCLUSION: Asymmetrical apical parenchymal changes worse on the right. Otherwise negative Head CTA 12/16/18 12:04 CONCLUSION: 1. Negative for major branch vessel occlusion. . . Neck CTA 12/16/18 12:04 CONCLUSION: 1. Minimal atherosclerotic calcific vascular disease. No hemodynamically significant stenosis Head MRI 12/16/18 12:20 CONCLUSION: 1. Restricted diffusion and left MCA distribution indicating acute left MCA infarct. 2. No evidence of mass effect or herniation. Findings were discussed with Dr. Moore by Dr. Darden. Review/Management - Diagnosis (1) CVA (cerebral vascular accident) Code(s): I63.9 - Cerebral infarction, unspecified Status: Acute Current Visit: Yes (2) Acute kidney injury Code(s): N17.9 - Acute kidney failure, unspecified Status: Acute Current Visit: Yes (3) Tobacco abuse Code(s): Z72.0 - Tobacco use Status: Chronic Current Visit: Yes - Review/Management Plan: -Subacute left MCA stroke -Hypertension -Tobaccoism -Acute kidney injury -Leukocytosis Neuro checks Q1h Telemetry Echocardiogram Check hemoglobin A1c and lipid panel Neuro checks Head of bed flat times 12 hours Goal BP 13-0-135/75-80 NPO PT/OT, evaluate and treat GI prophylaxis DVT prophylaxis The case was discussed with at bed side and RN Thank you for the opportunity to participate in the care of your patient (1) CVA (cerebral vascular accident) Qualifiers: CVA mechanism: embolism Precerebral and cerebral artery: middle cerebral artery Laterality of affected vessel: left Qualified Code(s): I63.412 - Cerebral infarction due to embolism of left middle cerebral artery
[2018-12-17] MEDS: Heparin - SQ 10,000 UNITS/ML Vial SQ SCH ×2 (03:18→16:12)
[2018-12-17] MEDS: niCARdipine Inj 25 MG in Sodium Chlor 0.9% Inj 240 ML IV.CONT PRN ×6 (03:18→21:07)
[2018-12-17] MEDS: Sod Chloride 0.9% Inj 1,000 ML IV.CONT SCH ×3 (03:18→13:51)
[2018-12-17] MEDS ORDERED: Chlorhexidine Gluconate 2% 1 Pack (2 Cloths) TOPICAL PRN (04:00)
[2018-12-17] MEDS: Chlorhexidine Gluconate 2% 1 Pack (2 Cloths) TOPICAL SCH (04:54)
[2018-12-17 05:18] LABS: Baso # (Auto) 0.2 th/mm3 (0.0-0.2); Hematocrit 44.5 % (39.0-51.0); Lymph # (Auto) 0.6 th/mm3 (1.0-4.8); Lymph % (Auto) 2.7 % (9.0-44.0); Mean Corpuscular HGB Conc 33.6 % (32.0-36.0); Mean Corpuscular Hemoglobin 29.3 pg (27.0-34.0); Mean Corpuscular Volume 87.4 fL (80.0-100.0); Mean Platelet Volume 7.4 fL (7.0-11.0); Mono # (Auto) 1.6 th/mm3 (0.0-0.9); Mono % (Auto) 7.6 % (0.0-8.0); Neut # (Auto) 19.2 th/mm3 (1.8-7.7); Neut % (Auto) 88.7 % (16.0-70.0); Platelet Count 331 th/mm3 (150-450); Red Cell Distribution Width 15.1 % (11.6-17.2); White Blood Count 21.6 th/mm3 (4.0-11.0)
[2018-12-17 05:30] LABS: Activated Partial Thrombo Time 29.9 sec (23.4-31.7); INR 1.2 Ratio; Prothrombin Time 11.7 sec (9.8-11.6)
[2018-12-17 05:55] LABS: Alanine Aminotransferase 20 U/L (12-78); Albumin 3.8 g/dL (3.4-5.0); Alkaline Phosphatase 77 U/L (45-117); Anion Gap 11 meq/L (5-15); Aspartate Aminotransferase 39 U/L (15-37); Blood Urea Nitrogen 27 mg/dL (7-18); Calcium 8.7 mg/dL (8.5-10.1); Carbon Dioxide 22.9 meq/L (21.0-32.0); Chloride 112 meq/L (98-107); Glomerular Filtration Rate 70 mL/min (>89); Glucose,Random 120 mg/dL (74-106); Magnesium 1.7 mg/dL (1.5-2.5); Phosphorus 1.6 mg/dL (2.5-4.9); Potassium 3.1 meq/L (3.5-5.1); Sodium 146 meq/L (136-145); Total Protein 7.7 g/dL (6.4-8.2)
[2018-12-17] MEDS: Aspirin 300 MG Supp RECTAL SCH (08:21)
[2018-12-17] MEDS: Pantoprazole Inj 40 MG Vial IV.PUSH SCH (08:21)
[2018-12-17] MEDS: Senna/Docusate Sodium 8.6/50 MG Tablet PO SCH ×2 (08:32→21:07)
[2018-12-17] MEDS: Insulin NovoLOG Aspart Correctional Sugar Inj SQ SCH ×4 (08:40→22:46)
--- NOTE | 2018-12-17 09:46 | P.PNCC ---
Subjective Subjective Remarks/Hospital Course: This is a 63-year-old male. Admission 12/16/2018. Past medical history is ongoing tobacco abuse. Patient presents to [facility] with a chief complaint per family of "unable to speaking "not all there, since Tuesday. Onset of symptoms was on Tuesday. They significantly worsened yesterday at about 10 AM. He is currently aphasic and unable to give history. On examination, patient does have a facial droop right-sided #does not stick out tongue.. Strength appears to be slightly weaker right compared to left. Right lower left lower extremity is unable to properly assess due to noncompliance. Unable to assess pronator drift due to noncompliance. Sensation difficult to assess. Unable to test gait. MRI of the brain revealed distal left MCA embolic phenomenon involving the left sylvian region. Possible recanalization of embolization of distal left M1 vessel. Likely embolic source. CT angiogram the head and neck was essentially normal with exception of possible embolic phenomenon involving the left distal M1 segment Is currently having transmitted upper airway sounds like new secretions. He is hypertensive. He received aspirin in the ED. We were asked to admit. Subjective 12/17: Resting complaint bed in mild respiratory distress. Transmitted upper airway sounds. Discussed with Maria G. No code/DNR will be established. Okay for central lines and vasopressors if indicated. No chest compressions or CPR. She has had 3 strokes in her family was to have significant stroke history. Objective Vital Signs / I&O: Vital Signs 12/16/18 10:46 12/16/18 13:09 12/16/18 15:29 Temperature 98.8 F Pulse Rate 97 H Respiratory Rate 16 Blood Pressure 211/146 H 214/139 H Pulse Oximetry 96 96 12/16/18 16:00 12/16/18 16:03 12/16/18 18:01 Temperature Pulse Rate 84 Respiratory Rate 27 H Blood Pressure 214/139 H Pulse Oximetry 92 L 95 12/16/18 18:15 12/16/18 18:30 12/16/18 18:45 Temperature Pulse Rate 83 90 89 Respiratory Rate 26 H 28 H 30 H Blood Pressure 146/92 H 145/95 H 136/88 Pulse Oximetry 93 L 94 L 97 12/16/18 19:00 12/16/18 19:15 12/16/18 19:30 Temperature Pulse Rate 86 90 93 H Respiratory Rate 26 H 27 H 28 H Blood Pressure 143/93 H 141/85 H 135/80 Pulse Oximetry 97 94 L 94 L 12/16/18 19:45 12/16/18 20:00 12/16/18 20:20 Temperature 98.2 F Pulse Rate 87 95 H 98 H Respiratory Rate 26 H 28 H 29 H Blood Pressure 131/79 137/82 131/83 Pulse Oximetry 97 97 92 L 12/16/18 20:25 12/16/18 20:30 12/16/18 20:45 Temperature Pulse Rate 91 H 91 H Respiratory Rate 26 H 28 H Blood Pressure 133/83 134/82 Pulse Oximetry 94 L 95 95 12/16/18 21:00 12/16/18 21:15 12/16/18 21:30 Temperature Pulse Rate 84 90 89 Respiratory Rate 28 H 27 H 30 H Blood Pressure 135/80 136/82 139/85 Pulse Oximetry 97 95 94 L 12/16/18 21:45 12/16/18 22:00 12/16/18 22:15 Temperature Pulse Rate 105 H 93 H 96 H Respiratory Rate 30 H 28 H 26 H Blood Pressure 159/86 H 134/74 148/79 H Pulse Oximetry 90 L 98 96 12/16/18 22:30 12/16/18 22:45 12/16/18 23:00 Temperature Pulse Rate 101 H 98 H 97 H Respiratory Rate 34 H 30 H 30 H Blood Pressure 144/81 H 146/86 H 141/84 H Pulse Oximetry 93 L 95 94 L 12/16/18 23:15 12/16/18 23:30 12/16/18 23:45 Temperature Pulse Rate 100 H 102 H 102 H Respiratory Rate 33 H 32 H 33 H Blood Pressure 143/90 H 137/99 H 148/81 H Pulse Oximetry 94 L 92 L 91 L 12/17/18 00:00 12/17/18 00:15 12/17/18 00:30 Temperature Pulse Rate 104 H 108 H 102 H Respiratory Rate 34 H 35 H 33 H Blood Pressure 178/81 H 159/80 H 144/80 H Pulse Oximetry 93 L 94 L 94 L 12/17/18 00:45 12/17/18 01:00 12/17/18 01:15 Temperature Pulse Rate 97 H 102 H 101 H Respiratory Rate 30 H 31 H 32 H Blood Pressure 142/70 H 146/78 H 162/87 H Pulse Oximetry 94 L 93 L 95 12/17/18 01:30 12/17/18 01:45 12/17/18 02:00 Temperature Pulse Rate 103 H 101 H 101 H Respiratory Rate 33 H 31 H 32 H Blood Pressure 160/101 H 141/91 H 156/86 H Pulse Oximetry 96 96 94 L 12/17/18 02:15 12/17/18 02:30 12/17/18 02:45 Temperature Pulse Rate 102 H 105 H 105 H Respiratory Rate 33 H 34 H 35 H Blood Pressure 144/80 H 153/83 H 151/83 H Pulse Oximetry 96 94 L 95 12/17/18 03:00 12/17/18 03:21 12/17/18 03:22 Temperature Pulse Rate 102 H 109 H 110 H Respiratory Rate 33 H 37 H 37 H Blood Pressure 148/82 H 175/100 H 163/91 H Pulse Oximetry 96 94 L 95 12/17/18 03:30 12/17/18 03:45 12/17/18 03:46 Temperature Pulse Rate 100 H 99 H 98 H Respiratory Rate 31 H 33 H Blood Pressure 153/84 H 148/82 H Pulse Oximetry 96 97 12/17/18 03:48 12/17/18 04:00 12/17/18 04:15 Temperature Pulse Rate 99 H 101 H Respiratory Rate 30 H 33 H Blood Pressure 148/82 H 148/84 H 146/85 H Pulse Oximetry 97 98 12/17/18 04:30 12/17/18 04:45 12/17/18 05:00 Temperature Pulse Rate 101 H 107 H 102 H Respiratory Rate 34 H 36 H 33 H Blood Pressure 145/82 H 150/85 H 145/81 H Pulse Oximetry 97 96 97 12/17/18 05:15 12/17/18 05:30 12/17/18 05:45 Temperature Pulse Rate 102 H 104 H 102 H Respiratory Rate 33 H 34 H 34 H Blood Pressure 150/85 H 143/84 H 148/81 H Pulse Oximetry 97 96 97 12/17/18 05:58 12/17/18 06:00 12/17/18 07:00 Temperature Pulse Rate 101 H 101 H Respiratory Rate 34 H Blood Pressure 144/82 H Pulse Oximetry 97 95 Intake & Output 12/16/18 12/17/18 12/17/18 18:59 06:59 18:59 Intake Total 1000 / 1000 2261.2 / 2261.2 250 / 250 Output Total 1050 / 1050 Balance 1000 / 1000 1211.2 / 1211.2 250 / 250 Weight 63.957 kg 117.5 kg Intake: IV 1000 / 1000 2261.2 / 2261.2 250 / 250 NS Inj 1,000 ML @ 84 mls/hr IV. 1000 / 1000 CONT .[id number] JOSIAH Rx#:[id number] Cardene Inj 25 MG In NS Inj 240 750 / 750 250 / 250 ML @ 2.5 MG/HR 25 mls/hr IV. CONT TITRATE PRN Rx#:[id number] MVI-12 Inj 10 ML Thiamine Inj 511.2 / 511.2 100 MG Folvite Inj 1 MG In NS Inj 500 ML @ 125 mls/hr IV.SIG Q24H JOSIAH Rx#:[id number] NS Inj 1,000 ML @ 1000 mls/hr 1000 / 1000 IV.SIG BOLUS JOSIAH Rx#:[id number] Oral 0 / 0 Output: Urine Amount (Catheter) 1050 / 1050 Condom 1050 / 1050 Result Diagrams: 12/17/18 04:55 12/17/18 04:55 Imaging: Head CT 12/16/18 11:09 CONCLUSION: Atrophy, significant periventricular white matter changes, otherwise negative. Christopher Thomas MD FACR . . Chest X-Ray 12/16/18 11:23 CONCLUSION: Asymmetrical apical parenchymal changes worse on the right. Otherwise negative Head CTA 12/16/18 12:04 CONCLUSION: 1. Negative for major branch vessel occlusion. . . Neck CTA 12/16/18 12:04 CONCLUSION: 1. Minimal atherosclerotic calcific vascular disease. No hemodynamically significant stenosis Head MRI 12/16/18 12:20 CONCLUSION: 1. Restricted diffusion and left MCA distribution indicating acute left MCA infarct. 2. No evidence of mass effect or herniation. Findings were discussed with Dr. Moore by Dr. Darden. Objective Remarks: GENERAL: 63-year-old male currently resting in bed in mild respiratory distress SKIN: Warm and dry. No rash HEAD: Atraumatic. Normocephalic. EYES: Pupils equal and round. No scleral icterus. No injection or drainage. ENT: No nasal bleeding or discharge. Mucous membranes pink and moist. NECK: Trachea midline. No JVD. CARDIOVASCULAR: Regular rate and rhythm. S1, S2 predose 4. RESPIRATORY: Transmitted upper airway sounds clear with cough.. Breath sounds equal bilaterally. GASTROINTESTINAL: Abdomen soft, non-tender, nondistended. Hepatic and splenic margins not palpable. MUSCULOSKELETAL: Extremities without clubbing, cyanosis, or edema. No obvious deformities. NEUROLOGICAL: Arousable but not following commands. Looking left. Right facial droop. Not following commands. Will squeeze right and left upper extremities but not to command. Withdraws to pain bilateral lower extremities. Assessment and Plan - Problem List (1) CVA (cerebral vascular accident) Code(s): I63.9 - Cerebral infarction, unspecified Status: Acute (2) Leukocytosis Code(s): D72.829 - Elevated white blood cell count, unspecified Status: Acute (3) Acute kidney injury Code(s): N17.9 - Acute kidney failure, unspecified Status: Acute (4) Total bilirubin, elevated Code(s): R17 - Unspecified jaundice Status: Acute (5) Tobacco abuse Code(s): Z72.0 - Tobacco use Status: Chronic - Assessment and Plan Plan: Neuro/Psych: Subacute left MCA CVA -distal M1 segment MRI brain revealed distal left MCA embolization with recanalization via the left sylvian vessels. CT Bre of the head neck essentially negative with exception of possible embolic events in the distal left M1 segment Neurology consultation. Dr. Ramírez recommends aspirin and systolic blood pressure 140 diastolic blood pressure -90 Echocardiogram ordered. Completed 12/17. Results pending Check hemoglobin A1c and follow-up on lipid panel See musculoskeletal Neuro checks Head of bed at 30 degrees CV: Hypertension As needed nicardipine labetalol to keep systolic blood pressure less than 220, diastolic was less than 120 2D echocardiogram ordered EKG revealed normal sinus rhythm. Normal MD, QRS and QT intervals. Resp: Tobaccoism Nasal cannula to maintain saturations greater than equal to 90% Incentive spirometry while awake As needed albuterol every 2 hours. As needed dyspnea Tobacco cessation education GI: Elevated total bilirubin Repeat liver function test in a.m. still elevated. Pantoprazole for GI prophylaxis Docusate sodium/senna 1 tablet twice daily for bowel regimen N.p.o. status Maria G is deciding whether to initiate tube feeding. Await recommendations : Straight catheterization as needed Endo: Sliding scale insulin Accu-Cheks to maintain euglycemia Check hemoglobin A1c still pending TSH within normal limits Renal: Acute kidney injury Monitor urine output Accurate I's and O's Follow BMP in a.m. 12/17 Heme: Leukocytosis Monitor CBC daily. Follow trends. No indication for transfusion of blood products at this time ID: Monitor for signs and symptomatology of infection FEN: Hypernatremia Hypopotassemia Hypophosphatemia Replace electrolytes as clinically indicated Replace in a.m. Adjust IV fluids to LR see orders MSK: PT/OT/ST evaluate and treat Access -Utilize peripheral IV. Central line if indicated Prophylaxis -GI -pantoprazole -DVT -SCD/heparin subcu Level 2 follow-up (1) CVA (cerebral vascular accident) Qualifiers: CVA mechanism: embolism Precerebral and cerebral artery: middle cerebral artery Laterality of affected vessel: left Qualified Code(s): I63.412 - Cerebral infarction due to embolism of left middle cerebral artery (2) Leukocytosis Qualifiers: Leukocytosis type: unspecified Qualified Code(s): D72.829 - Elevated white blood cell count, unspecified
[2018-12-17] MEDS ORDERED: Magnesium Sulfate Inj 2 GM in Sodium Chlor 0.9% Inj 96 ML IV.SIG ONE (10:00)
[2018-12-17] MEDS ORDERED: Potassium Phosphate Inj 30 MMOL in Sodium Chlor 0.9% Inj 250 ML IV.SIG ONE (10:00)
--- NOTE | 2018-12-17 10:04 | ECHRPT ---
Indication: cva /tia CONCLUSIONS Normal left ventricular size. Wall thickness is normal. The left ventricular systolic function is normal with an estimated ejection fraction in the range of 55-60%. The left atrial size is mildly dilated. Trace mitral valve regurgitation. Aortic valve sclerosis is present. The estimated pulmonary arterial pressure is 29 mmHg. There is mild tricuspid valve regurgitation. Very technically difficult study BP: / HR: Rhythm: MEASUREMENTS (Male / Female) Normal Values Technical Quality:Very technically difficult study 2D ECHO LV Diastolic Diameter PLAX 3.8 cm 4.2 - 5.9 / 3.9 - 5.3 cm LV Systolic Diameter PLAX 3.0 cm IVS Diastolic Thickness 1.1 cm 0.6 - 1.0 / 0.6 - 0.9 cm LVPW Diastolic Thickness 1.2 cm 0.6 - 1.0 / 0.6 - 0.9 cm LV Relative Wall Thickness 0.6 RV Internal Dim ED PLAX 2.9 cm LVOT Diameter 2.5 cm Aortic Root Diameter 2.9 cm LA Systolic Diameter LX 2.0 cm 3.0 - 4.0 / 2.7 - 3.8 cm M-MODE Aortic Root Diameter MM 3.2 cm LA Systolic Diameter MM 4.4 cm LA Ao Ratio MM 1.4 AV Cusp Separation MM 1.9 cm DOPPLER AV Peak Velocity 171.0 cm/s AV Peak Gradient 11.7 mmHg LVOT Peak Velocity 118.0 cm/s LVOT Peak Gradient 5.6 mmHg AV Area Cont Eq pk 3.4 cm Mitral E Point Velocity 45.4 cm/s Mitral A Point Velocity 36.0 cm/s Mitral E to A Ratio 1.3 LV E' Lateral Velocity 11.2 cm/s Mitral E to LV E' Lateral Ratio 4.1 LV E' Septal Velocity 6.8 cm/s Mitral E to LV E' Septal Ratio 6.7 TR Peak Velocity 216.0 cm/s TR Peak Gradient 18.7 mmHg Right Atrial Pressure 10.0 mmHg Pulmonary Artery Systolic Pressu 28.7 mmHg Right Ventricular Systolic Press 28.7 mmHg PV Peak Velocity 174.0 cm/s PV Peak Gradient 12.1 mmHg FINDINGS LEFT VENTRICLE Normal left ventricular size. Wall thickness is normal. The left ventricular systolic function is normal with an estimated ejection fraction in the range of 55-60%. RIGHT VENTRICLE Normal right ventricular size and systolic function. LEFT ATRIUM The left atrial size is mildly dilated. RIGHT ATRIUM The right atrial size is normal. ATRIAL SEPTUM Normal atrial septal thickness without atrial level shunting by limited color doppler interrogation. AORTA The aortic root and proximal ascending aorta are normal in size on limited imaging. MITRAL VALVE Trace mitral valve regurgitation. AORTIC VALVE Aortic valve sclerosis is present. TRICUSPID VALVE The estimated pulmonary arterial pressure is 29 mmHg. There is mild tricuspid valve regurgitation. PULMONARY VALVE No pulmonary valve regurgitation or stenosis. VESSELS The inferior vena cava is normal in size. PERICARDIUM No pericardial effusion. Morgan Caba MD (Electronically Signed) Final Date:17 December 2018 10:03
[2018-12-17 13:31] LABS: Hemoglobin A1c 5.3 % (4.3-6.0)
--- NOTE | 2018-12-17 15:34 | P.PNNEU ---
Subjective Subjective Comments: Patient examined with at bedside No acute events over night BP stable Patient is more calm today, with same neurologic deficit Active Medications: Active Medications Acetaminophen (Tylenol) 650 mg PO Q6H PRN PRN Reason: PAIN 1-10 AND/OR FEVER >101F Al Hydroxide/Mg Hydroxide (Milk Of Magnfernanda Liq) 30 ml PO Q12H PRN PRN Reason: Mild Constipation Albuterol (Albuterol Neb (Prn)) 2.5 mg NEB Q2HR NEB PRN PRN Reason: SHORTNESS OF BREATH/WHEEZING Aspirin (Aspirin Supp) 300 mg RECTAL DAILY [facility] Last Admin: 12/17/18 08:21 Dose: 300 mg Bisacodyl (Dulcolax Supp) 10 mg RECTAL DAILY PRN PRN Reason: SEVERE CONSITIPATION Chlorhexidine Gluconate (Chlorhexidine 2% Cloth) 3 pack TOPICAL DAILY@0400 [facility] Stop: 12/22/18 03:59 Last Admin: 12/17/18 04:54 Dose: 3 pack Chlorhexidine Gluconate (Chlorhexidine 2% Cloth) 3 pack TOPICAL DAILY@0400 PRN PRN Reason: Extra cloth needed Stop: 12/22/18 03:59 Dextrose (D50w Vial) 50 ml IV.PUSH UNSCH PRN PRN Reason: PER HYPOGLYCEMIA PROTOCOL Glucagon (Glucagon Inj) 1 mg OTHER UNSCH PRN PRN Reason: for Hypoglycemia Protocol Heparin Sodium (Porcine) (Heparin Inj) 5,000 units SQ Q12H [facility] Last Admin: 12/17/18 03:18 Dose: 5,000 units Hydralazine HCl (Apresoline Inj) 10 mg IV.PUSH Q1H PRN PRN Reason: Sbp>150, Dbp>90 Nicardipine HCl 25 mg/ Sodium (Chloride) 250 mls @ 25 mls/hr IV.CONT TITRATE PRN; Protocol PRN Reason: Per Protocol Last Admin: 12/17/18 13:49 Dose: 8 mg/hr, 80 mls/hr Multivitamins 10 ml/ Thiamine HCl 100 mg/ Folic Acid 1 mg/Sodium Chloride 511.2 mls @ 125 mls/hr IV.SIG Q24H [facility] Stop: 12/18/18 20:06 Last Infusion: 12/16/18 20:06 Dose: Infused Magnesium Sulfate 4 gm/ Sodium (Chloride) 100 mls @ 50 mls/hr IV.SIG UNSCH PRN PRN Reason: For Magnesium 0.9 - 1.1 mg/dL Magnesium Sulfate 2 gm/ Sodium (Chloride) 100 mls @ 50 mls/hr IV.SIG UNSCH PRN PRN Reason: For Magnesium 1.2 - 1.6 mg/dL Potassium Chloride (Kcl 40 Meq Premix Inj) 40 meq in 100 mls @ 50 mls/hr IV.SIG Q2H PRN PRN Reason: For Potassium 2.8 - 3.2 mEq/L Potassium Chloride (Kcl 20 Meq Premix Inj) 20 meq in 100 mls @ 50 mls/hr IV.SIG Q2H PRN PRN Reason: For Potassium 3.3 - 3.5 mEq/L Potassium Chloride (Kcl 40 Meq Premix Inj) 40 meq in 100 mls @ 25 mls/hr IV.SIG UNSCH PRN PRN Reason: For Potassium 3.3 - 3.5 mEq/L Potassium Chloride (Kcl 20 Meq Premix Inj) 20 meq in 100 mls @ 50 mls/hr IV.SIG Q2H PRN PRN Reason: For Potassium 2.8 - 3.2 mEq/L Potassium Phosphate 30 mmol/ (Sodium Chloride) 260 mls @ 42 mls/hr IV.SIG UNSCH PRN PRN Reason: SEE LABEL COMMENTS Last Admin: 12/17/18 06:32 Dose: 42 mls/hr Sodium Phosphate 30 mmol/ (Sodium Chloride) 260 mls @ 42 mls/hr IV.SIG UNSCH PRN PRN Reason: For Phosphorus < 2.5 mg/dL Sodium Chloride (Ns Inj) 1,000 mls @ 84 mls/hr IV.CONT .[id number] [facility] Last Admin: 12/17/18 13:51 Dose: 84 mls/hr Potassium Phosphate 30 mmol/ (Sodium Chloride) 260 mls @ 43.333 mls/hr IV.SIG ONCE ONE Stop: 12/17/18 15:59 Last Admin: 12/17/18 10:31 Dose: Not Given Insulin Aspart (Novolog Insulin Correctional Sugar Inj) 0 unit SQ ACHS [facility]; Protocol Last Admin: 12/17/18 12:55 Dose: Not Given Labetalol HCl (Trandate Inj) 10 mg IV.PUSH Q1H PRN PRN Reason: Sbp>150, Dbp>90, Hr>65 Lactulose (Lactulose Liq) 30 ml PO DAILY PRN PRN Reason: SEVERE CONSITIPATION Magnesium Oxide (Mag-Ox) 800 mg PO UNSCH PRN PRN Reason: For Magnesium 1.2 - 1.6 mg/dL Pantoprazole Sodium (Protonix Inj) 40 mg IV.PUSH DAILY [facility] Last Admin: 12/17/18 08:21 Dose: 40 mg Potassium Chloride (Kcl Liq) 40 meq PO UNSCH PRN PRN Reason: Potassium level 3.3-3.5 mEq/L Potassium Chloride (Kcl Liq) 40 meq PO UNSCH PRN PRN Reason: POTASSIUM LESS THAN 3.5 Potassium Phosphate (K-Phos Original) 2,000 mg PO Q4H PRN PRN Reason: Phosphorus Less Than 2.5 mg/dL Potassium Phosphate (K-Phos Original) 2,000 mg PO UNSCH PRN PRN Reason: SEE LABEL COMMENTS Pravastatin Sodium (Pravachol) 40 mg PO [facility] Last Admin: 12/16/18 20:06 Dose: Not Given Senna/Docusate Sodium (Claudia-Colace) 1 tab PO BID [facility] Last Admin: 12/17/18 08:32 Dose: Not Given Sennosides (Senokot) 17.2 mg PO Q12H PRN PRN Reason: Moderate Constipation Sodium Chloride (Ns Flush) 2 ml IV.FLUSH BID [facility] Last Admin: 12/17/18 08:32 Dose: 2 ml Sodium Chloride (Ns Flush) 2 ml IV.FLUSH UNSCH PRN PRN Reason: FLUSH AFTER USING IV ACCESS Allergies/Adverse Reactions: Allergies Allergy/AdvReac Type Severity Reaction Status Date / Time No Known Allergies Allergy Verified 12/16/18 13:02 Physical Exam Vital signs: Vital Signs 12/16/18 16:00 12/16/18 16:03 12/16/18 18:01 Temperature Pulse Rate 84 Respiratory Rate 27 H Blood Pressure 214/139 H Pulse Oximetry 92 L 95 12/16/18 18:15 12/16/18 18:30 12/16/18 18:45 Temperature Pulse Rate 83 90 89 Respiratory Rate 26 H 28 H 30 H Blood Pressure 146/92 H 145/95 H 136/88 Pulse Oximetry 93 L 94 L 97 12/16/18 19:00 12/16/18 19:15 12/16/18 19:30 Temperature Pulse Rate 86 90 93 H Respiratory Rate 26 H 27 H 28 H Blood Pressure 143/93 H 141/85 H 135/80 Pulse Oximetry 97 94 L 94 L 12/16/18 19:45 12/16/18 20:00 12/16/18 20:20 Temperature 98.2 F Pulse Rate 87 95 H 98 H Respiratory Rate 26 H 28 H 29 H Blood Pressure 131/79 137/82 131/83 Pulse Oximetry 97 97 92 L 12/16/18 20:25 12/16/18 20:30 12/16/18 20:45 Temperature Pulse Rate 91 H 91 H Respiratory Rate 26 H 28 H Blood Pressure 133/83 134/82 Pulse Oximetry 94 L 95 95 12/16/18 21:00 12/16/18 21:15 12/16/18 21:30 Temperature Pulse Rate 84 90 89 Respiratory Rate 28 H 27 H 30 H Blood Pressure 135/80 136/82 139/85 Pulse Oximetry 97 95 94 L 12/16/18 21:45 12/16/18 22:00 12/16/18 22:15 Temperature Pulse Rate 105 H 93 H 96 H Respiratory Rate 30 H 28 H 26 H Blood Pressure 159/86 H 134/74 148/79 H Pulse Oximetry 90 L 98 96 12/16/18 22:30 12/16/18 22:45 12/16/18 23:00 Temperature Pulse Rate 101 H 98 H 97 H Respiratory Rate 34 H 30 H 30 H Blood Pressure 144/81 H 146/86 H 141/84 H Pulse Oximetry 93 L 95 94 L 12/16/18 23:15 12/16/18 23:30 12/16/18 23:45 Temperature Pulse Rate 100 H 102 H 102 H Respiratory Rate 33 H 32 H 33 H Blood Pressure 143/90 H 137/99 H 148/81 H Pulse Oximetry 94 L 92 L 91 L 12/17/18 00:00 12/17/18 00:15 12/17/18 00:30 Temperature Pulse Rate 104 H 108 H 102 H Respiratory Rate 34 H 35 H 33 H Blood Pressure 178/81 H 159/80 H 144/80 H Pulse Oximetry 93 L 94 L 94 L 12/17/18 00:45 12/17/18 01:00 12/17/18 01:15 Temperature Pulse Rate 97 H 102 H 101 H Respiratory Rate 30 H 31 H 32 H Blood Pressure 142/70 H 146/78 H 162/87 H Pulse Oximetry 94 L 93 L 95 12/17/18 01:30 12/17/18 01:45 12/17/18 02:00 Temperature Pulse Rate 103 H 101 H 101 H Respiratory Rate 33 H 31 H 32 H Blood Pressure 160/101 H 141/91 H 156/86 H Pulse Oximetry 96 96 94 L 12/17/18 02:15 12/17/18 02:30 12/17/18 02:45 Temperature Pulse Rate 102 H 105 H 105 H Respiratory Rate 33 H 34 H 35 H Blood Pressure 144/80 H 153/83 H 151/83 H Pulse Oximetry 96 94 L 95 12/17/18 03:00 12/17/18 03:21 12/17/18 03:22 Temperature Pulse Rate 102 H 109 H 110 H Respiratory Rate 33 H 37 H 37 H Blood Pressure 148/82 H 175/100 H 163/91 H Pulse Oximetry 96 94 L 95 12/17/18 03:30 12/17/18 03:45 12/17/18 03:46 Temperature Pulse Rate 100 H 99 H 98 H Respiratory Rate 31 H 33 H Blood Pressure 153/84 H 148/82 H Pulse Oximetry 96 97 12/17/18 03:48 12/17/18 04:00 12/17/18 04:15 Temperature Pulse Rate 99 H 101 H Respiratory Rate 30 H 33 H Blood Pressure 148/82 H 148/84 H 146/85 H Pulse Oximetry 97 98 12/17/18 04:30 12/17/18 04:45 12/17/18 05:00 Temperature Pulse Rate 101 H 107 H 102 H Respiratory Rate 34 H 36 H 33 H Blood Pressure 145/82 H 150/85 H 145/81 H Pulse Oximetry 97 96 97 12/17/18 05:15 12/17/18 05:30 12/17/18 05:45 Temperature Pulse Rate 102 H 104 H 102 H Respiratory Rate 33 H 34 H 34 H Blood Pressure 150/85 H 143/84 H 148/81 H Pulse Oximetry 97 96 97 12/17/18 05:58 12/17/18 06:00 12/17/18 06:15 Temperature Pulse Rate 101 H 101 H 101 H Respiratory Rate 34 H 32 H Blood Pressure 144/82 H 144/81 H Pulse Oximetry 97 96 12/17/18 06:30 12/17/18 06:45 12/17/18 07:00 Temperature Pulse Rate 100 H 106 H 108 H Respiratory Rate 34 H 34 H 35 H Blood Pressure 141/79 H 144/82 H 138/81 Pulse Oximetry 97 96 95 12/17/18 07:15 12/17/18 07:30 12/17/18 07:45 Temperature Pulse Rate 104 H 103 H 105 H Respiratory Rate 32 H 32 H 33 H Blood Pressure 137/83 140/82 150/88 H Pulse Oximetry 95 97 94 L 12/17/18 08:00 12/17/18 08:15 12/17/18 08:30 Temperature 98.1 F Pulse Rate 100 H 100 H 99 H Respiratory Rate 31 H 31 H 30 H Blood Pressure 142/86 H 145/86 H 142/85 H Pulse Oximetry 93 L 93 L 98 12/17/18 08:45 12/17/18 09:00 12/17/18 09:15 Temperature Pulse Rate 107 H 97 H 97 H Respiratory Rate 28 H 29 H 30 H Blood Pressure 139/87 143/84 H 140/85 Pulse Oximetry 94 L 96 95 12/17/18 09:30 12/17/18 09:45 12/17/18 10:00 Temperature Pulse Rate 97 H 97 H 100 H Respiratory Rate 30 H 30 H 33 H Blood Pressure 141/84 H 139/84 135/83 Pulse Oximetry 96 100 96 12/17/18 10:16 12/17/18 10:31 12/17/18 10:39 Temperature Pulse Rate 101 H 105 H 100 H Respiratory Rate 33 H 35 H Blood Pressure 156/83 H 214/100 H Pulse Oximetry 93 L 94 L 12/17/18 10:46 12/17/18 11:00 12/17/18 11:15 Temperature Pulse Rate 99 H 99 H 99 H Respiratory Rate 32 H 34 H 33 H Blood Pressure 142/80 H 155/81 H 147/82 H Pulse Oximetry 96 95 94 L 12/17/18 11:30 12/17/18 11:45 12/17/18 12:00 Temperature Pulse Rate 96 H 96 H 96 H Respiratory Rate 31 H 31 H 30 H Blood Pressure 143/78 H 141/79 H 145/79 H Pulse Oximetry 94 L 97 96 12/17/18 12:15 12/17/18 12:30 12/17/18 14:00 Temperature 98.3 F Pulse Rate 94 H 97 H 101 H Respiratory Rate 30 H 33 H Blood Pressure 147/80 H 151/80 H Pulse Oximetry 96 96 Intake & Output 12/16/18 12/17/18 12/17/18 18:59 06:59 18:59 Intake Total 1000 / 1000 2261.2 / 2261.2 1500 / 1500 Output Total 1050 / 1050 Balance 1000 / 1000 1211.2 / 1211.2 1500 / 1500 Weight 63.957 kg 117.5 kg Intake: IV 1000 / 1000 2261.2 / 2261.2 1500 / 1500 NS Inj 1,000 ML @ 84 mls/hr IV. 1000 / 1000 1000 / 1000 CONT .[id number] JOSIA[facility] Rx#:[id number] Cardene Inj 25 MG In NS Inj 240 750 / 750 500 / 500 ML @ 2.5 MG/HR 25 mls/hr IV. CONT TITRATE PRN Rx#:[id number] MVI-12 Inj 10 ML Thiamine Inj 511.2 / 511.2 100 MG Folvite Inj 1 MG In NS Inj 500 ML @ 125 mls/hr IV.SIG Q24H [facility] Rx#:[id number] NS Inj 1,000 ML @ 1000 mls/hr 1000 / 1000 IV.SIG BOLUS JOSIA[facility] Rx#:[id number] Oral 0 / 0 0 / 0 Output: Urine Amount (Catheter) 1050 / 1050 Condom 1050 / 1050 Other: Date of Last Bowel Movement 12/17/18 Narrative: Present: intact (awake, AOX0, irritable, aphasic, right facial palsy, right sided visual field defect, no reaction to left sided visual threat, right sided hemiplegia, plantars right upgoing, left downgoing.) - Routine HEENT Exam Head: Present: normocephalic, atraumatic - Routine Neck Exam Present: supple, full ROM - Routine Cardiovascular Exam Present: RRR - Routine Abdominal Exam Present: soft, normoactive bowel sounds - Detailed Neurological Exam: Coma Scale Eye Opening: Spontaneous Verbal Response: Confused - Urinary Catheter Management Condom Cath placed during this visit: no Objective Radiology Results: Head CT 12/16/18 11:09 CONCLUSION: Atrophy, significant periventricular white matter changes, otherwise negative. Chest X-Ray 12/16/18 11:23 CONCLUSION: Asymmetrical apical parenchymal changes worse on the right. Otherwise negative Head CTA 12/16/18 12:04 CONCLUSION: 1. Negative for major branch vessel occlusion. Neck CTA 12/16/18 12:04 CONCLUSION: 1. Minimal atherosclerotic calcific vascular disease. No hemodynamically significant stenosis Head MRI 12/16/18 12:20 CONCLUSION: 1. Restricted diffusion and left MCA distribution indicating acute left MCA infarct. 2. No evidence of mass effect or herniation. Laboratory Results - last 24 hr 12/16/18 12/16/18 12/17/18 20:04 22:30 04:55 WBC RBC Hgb Hct MCV MCH MCHC RDW Plt Count MPV Neut % (Auto) Lymph % (Auto) [place] % (Auto) Eos % (Auto) Baso % (Auto) Neut # (Auto) Lymph # (Auto) [place] # (Auto) Eos # (Auto) Baso # (Auto) WBC Differential Differential Comment PT INR APTT Sodium Potassium Chloride Carbon Dioxide Anion Gap BUN Creatinine Estimated GFR POC Glucose 141 H Random Glucose Hemoglobin A1c 5.3 Calcium Phosphorus Magnesium Total Bilirubin AST ALT Alkaline Phosphatase Total Protein Albumin Nasal Screen MRSA (PCR) Not detected 12/17/18 12/17/18 12/17/18 04:55 04:55 04:55 WBC 21.6 H D RBC 5.10 Hgb 15.0 Hct 44.5 MCV 87.4 MCH 29.3 MCHC 33.6 RDW 15.1 Plt Count 331 MPV 7.4 Neut % (Auto) 88.7 H Lymph % (Auto) 2.7 L [place] % (Auto) 7.6 Eos % (Auto) 0.0 Baso % (Auto) 1.0 Neut # (Auto) 19.2 H Lymph # (Auto) 0.6 L [place] # (Auto) 1.6 H Eos # (Auto) 0.0 Baso # (Auto) 0.2 WBC Differential . Differential Comment Auto diff final PT 11.7 H INR 1.2 APTT 29.9 Sodium 146 H Potassium 3.1 L Chloride 112 H D Carbon Dioxide 22.9 Anion Gap 11 BUN 27 H Creatinine 1.07 Estimated GFR 70 L POC Glucose Random Glucose 120 H Hemoglobin A1c Calcium 8.7 D Phosphorus 1.6 L Magnesium 1.7 Total Bilirubin 2.2 H AST 39 H ALT 20 Alkaline Phosphatase 77 Total Protein 7.7 D Albumin 3.8 Nasal Screen MRSA (PCR) 12/17/18 12/17/18 08:39 12:39 WBC RBC Hgb Hct MCV MCH MCHC RDW Plt Count MPV Neut % (Auto) Lymph % (Auto) [place] % (Auto) Eos % (Auto) Baso % (Auto) Neut # (Auto) Lymph # (Auto) [place] # (Auto) Eos # (Auto) Baso # (Auto) WBC Differential Differential Comment PT INR APTT Sodium Potassium Chloride Carbon Dioxide Anion Gap BUN Creatinine Estimated GFR POC Glucose 129 H 123 H Random Glucose Hemoglobin A1c Calcium Phosphorus Magnesium Total Bilirubin AST ALT Alkaline Phosphatase Total Protein Albumin Nasal Screen MRSA (PCR) Review/Management - Diagnosis (1) CVA (cerebral vascular accident) Code(s): I63.9 - Cerebral infarction, unspecified Status: Acute Current Visit: Yes (2) Acute kidney injury Code(s): N17.9 - Acute kidney failure, unspecified Status: Acute Current Visit: Yes (3) Tobacco abuse Code(s): Z72.0 - Tobacco use Status: Chronic Current Visit: Yes - Review/Management Plan: -Subacute left MCA stroke not a candidate for iv tPA because of presentation outside the therapeutic window. -Hypertension -Tobaccoism -Acute kidney injury -Leukocytosis Neuro checks Q1h Telemetry Goal BP 130-135/75-80 NPO PT/OT, evaluate and treat GI prophylaxis DVT prophylaxis The case was discussed with at bed side Neurology will follow up (1) CVA (cerebral vascular accident) Qualifiers: CVA mechanism: embolism Precerebral and cerebral artery: middle cerebral artery Laterality of affected vessel: left Qualified Code(s): I63.412 - Cerebral infarction due to embolism of left middle cerebral artery
[2018-12-17] MEDS: Multivitamin Inj 10 ML, Thiamine Inj 100 MG, Folic Acid Inj 1 MG in Sodium Chlor 0.9% I... IV.SIG SCH (16:12)
[2018-12-17 20:29] LABS: Albumin 3.3 g/dL (3.4-5.0); Anion Gap 12 meq/L (5-15); Aspartate Aminotransferase 49 U/L (15-37); Blood Urea Nitrogen 25 mg/dL (7-18); Calcium 8.5 mg/dL (8.5-10.1); Carbon Dioxide 20.6 meq/L (21.0-32.0); Chloride 116 meq/L (98-107); Glomerular Filtration Rate 66 mL/min (>89); Glucose,Random 116 mg/dL (74-106); Potassium 3.4 meq/L (3.5-5.1); Sodium 149 meq/L (136-145)
[2018-12-17 20:35] LABS: Alanine Aminotransferase 22 U/L (12-78); Alkaline Phosphatase 68 U/L (45-117); Phosphorus 2.4 mg/dL (2.5-4.9)
[2018-12-18] MEDS: niCARdipine Inj 25 MG in Sodium Chlor 0.9% Inj 240 ML IV.CONT PRN (00:05)
[2018-12-18] MEDS: Heparin - SQ 10,000 UNITS/ML Vial SQ SCH ×2 (03:20→16:21)
[2018-12-18] MEDS: Chlorhexidine Gluconate 2% 1 Pack (2 Cloths) TOPICAL SCH (03:20)
--- NOTE | 2018-12-18 06:11 | CT ---
EXAM DATE: 12/18/2018 6:04 AM EST AGE/SEX: 63 years / Male INDICATIONS: Follow up left MCA occlusion. CLINICAL DATA: This is the patient's subsequent encounter. Patient reports that signs and symptoms h ave been present for 1 day and indicates a pain score of Nonresponsive. MEDICAL/SURGICAL HISTORY: Non-responsive. Non-responsive. RADIATION DOSE: 66.34 CTDI (mGy) [place] [facility] [place] W 3[place] 12/16/2018. . TECHNIQUE: CT of the head without contrast. Using automated exposure control and adjustment of the mA and/or kV according to patient size, radiation dose was kept as low as reasonably achievable to ob tain optimal diagnostic quality images. DICOM format image data is available electronically for revi ew and comparison. FINDINGS: Cerebrum: Large area of low attenuation in the left frontal parietal region. The ventricles and basi lar cisterns remain patent. No evidence of midline shift, mass lesion or hemorrhage. No extraaxial fluid collections are seen. Posterior Fossa: The cerebellum and brainstem are intact. The 4th ventricle is midline. The cerebe llopontine angle is unremarkable. Extracranial: The visualized portion of the orbits is intact. Skull: The calvaria is intact. No evidence of skull fracture. CONCLUSION: 1. Evolving left middle cerebral artery distribution infarct. 2. No midline shift. . . Electronically signed by: Yonis Adler MD Board Certified Radiologist 12/18/2018 6:09 AM EST
[2018-12-18] MEDS: Aspirin 300 MG Supp RECTAL SCH (08:19)
[2018-12-18] MEDS: Sod Chloride 0.9% Inj 1,000 ML IV.CONT SCH (08:25)
[2018-12-18] MEDS: Senna/Docusate Sodium 8.6/50 MG Tablet PO SCH (08:26)
[2018-12-18] MEDS: Insulin NovoLOG Aspart Correctional Sugar Inj SQ SCH ×3 (08:26→16:21)
[2018-12-18] MEDS: Pantoprazole Inj 40 MG Vial IV.PUSH SCH (08:26)
[2018-12-18 08:31] LABS: Baso # (Auto) 0.1 th/mm3 (0.0-0.2); Baso % (Auto) 0.2 % (0.0-2.0); Hematocrit 39.9 % (39.0-51.0); Hemoglobin 14.1 gm/dL (13.0-17.0); Lymph # (Auto) 0.6 th/mm3 (1.0-4.8); Lymph % (Auto) 1.8 % (9.0-44.0); Mean Corpuscular HGB Conc 35.4 % (32.0-36.0); Mean Corpuscular Hemoglobin 30.2 pg (27.0-34.0); Mean Corpuscular Volume 85.3 fL (80.0-100.0); Mean Platelet Volume 7.8 fL (7.0-11.0); Mono # (Auto) 1.3 th/mm3 (0.0-0.9); Mono % (Auto) 4.5 % (0.0-8.0); Neut # (Auto) 28.1 th/mm3 (1.8-7.7); Neut % (Auto) 93.5 % (16.0-70.0); Platelet Count 289 th/mm3 (150-450); Red Blood Count 4.67 mil/mm3 (4.50-5.90); Red Cell Distribution Width 15.1 % (11.6-17.2); White Blood Count 30.1 th/mm3 (4.0-11.0)
--- NOTE | 2018-12-18 08:33 | P.PNCC ---
Subjective Subjective Remarks/Hospital Course: This is a 63-year-old male. Admission 12/16/2018. Past medical history is ongoing tobacco abuse. Patient presents to [facility] with a chief complaint per family of "unable to speaking "not all there, since Tuesday. Onset of symptoms was on Tuesday. They significantly worsened yesterday at about 10 AM. He is currently aphasic and unable to give history. On examination, patient does have a facial droop right-sided #does not stick out tongue.. Strength appears to be slightly weaker right compared to left. Right lower left lower extremity is unable to properly assess due to noncompliance. Unable to assess pronator drift due to noncompliance. Sensation difficult to assess. Unable to test gait. MRI of the brain revealed distal left MCA embolic phenomenon involving the left sylvian region. Possible recanalization of embolization of distal left M1 vessel. Likely embolic source. CT angiogram the head and neck was essentially normal with exception of possible embolic phenomenon involving the left distal M1 segment Is currently having transmitted upper airway sounds like new secretions. He is hypertensive. He received aspirin in the ED. We were asked to admit. Subjective 12/17: Resting complaint bed in mild respiratory distress. Transmitted upper airway sounds. Discussed with Maria G. No code/DNR will be established. Okay for central lines and vasopressors if indicated. No chest compressions or CPR. She has had 3 strokes in her family was to have significant stroke history. 12/18 Patient is on 3L oxygen. Afebrile. CT brain this morning showed evolving left middle cerebral artery distribution infarct. No midline shift. Objective Vital Signs / I&O: Vital Signs 12/17/18 08:30 12/17/18 08:45 12/17/18 09:00 Temperature Pulse Rate 99 H 107 H 97 H Respiratory Rate 30 H 28 H 29 H Blood Pressure 142/85 H 139/87 143/84 H Pulse Oximetry 98 94 L 96 12/17/18 09:15 12/17/18 09:30 12/17/18 09:45 Temperature Pulse Rate 97 H 97 H 97 H Respiratory Rate 30 H 30 H 30 H Blood Pressure 140/85 141/84 H 139/84 Pulse Oximetry 95 96 100 12/17/18 10:00 12/17/18 10:16 12/17/18 10:31 Temperature Pulse Rate 100 H 101 H 105 H Respiratory Rate 33 H 33 H 35 H Blood Pressure 135/83 156/83 H 214/100 H Pulse Oximetry 96 93 L 94 L 12/17/18 10:39 12/17/18 10:46 12/17/18 11:00 Temperature Pulse Rate 100 H 99 H 99 H Respiratory Rate 32 H 34 H Blood Pressure 142/80 H 155/81 H Pulse Oximetry 96 95 12/17/18 11:15 12/17/18 11:30 12/17/18 11:45 Temperature Pulse Rate 99 H 96 H 96 H Respiratory Rate 33 H 31 H 31 H Blood Pressure 147/82 H 143/78 H 141/79 H Pulse Oximetry 94 L 94 L 97 12/17/18 12:00 12/17/18 12:15 12/17/18 12:30 Temperature 98.3 F Pulse Rate 96 H 94 H 97 H Respiratory Rate 30 H 30 H 33 H Blood Pressure 151/80 H 147/80 H 151/80 H Pulse Oximetry 96 96 96 12/17/18 12:45 12/17/18 13:00 12/17/18 13:15 Temperature Pulse Rate 97 H 100 H 100 H Respiratory Rate 32 H 30 H 35 H Blood Pressure 149/78 H 151/81 H 142/80 H Pulse Oximetry 95 93 L 95 12/17/18 13:30 12/17/18 13:45 12/17/18 14:00 Temperature Pulse Rate 97 H 100 H 101 H Respiratory Rate 33 H 33 H 34 H Blood Pressure 144/82 H 150/83 H 153/86 H Pulse Oximetry 96 95 95 12/17/18 14:15 12/17/18 14:30 12/17/18 14:45 Temperature Pulse Rate 101 H 98 H 101 H Respiratory Rate 33 H 27 H 24 Blood Pressure 149/84 H 150/82 H 160/86 H Pulse Oximetry 96 96 95 12/17/18 15:00 12/17/18 15:15 12/17/18 15:30 Temperature Pulse Rate 101 H 101 H 101 H Respiratory Rate 25 H 27 H 28 H Blood Pressure 140/78 155/84 H 145/81 H Pulse Oximetry 93 L 92 L 93 L 12/17/18 15:45 12/17/18 16:00 12/17/18 16:15 Temperature 99.0 F Pulse Rate 105 H 101 H 101 H Respiratory Rate 29 H 27 H 30 H Blood Pressure 120/81 147/83 H 146/81 H Pulse Oximetry 92 L 94 L 94 L 12/17/18 16:30 12/17/18 16:45 12/17/18 17:00 Temperature Pulse Rate 104 H 102 H 101 H Respiratory Rate 26 H 34 H 33 H Blood Pressure 160/91 H 159/91 H 140/81 Pulse Oximetry 93 L 95 96 12/17/18 17:15 12/17/18 17:30 12/17/18 17:45 Temperature Pulse Rate 100 H 100 H 101 H Respiratory Rate 32 H 34 H 33 H Blood Pressure 152/88 H 149/86 H 149/86 H Pulse Oximetry 97 95 95 12/17/18 18:00 12/17/18 19:45 12/17/18 20:00 Temperature Pulse Rate 103 H 107 H Respiratory Rate 32 H 36 H Blood Pressure 150/86 H 142/79 H 145/80 H Pulse Oximetry 94 L 97 12/17/18 20:15 12/17/18 20:30 12/17/18 20:45 Temperature 98.2 F Pulse Rate 109 H 105 H 107 H Respiratory Rate 35 H 37 H 36 H Blood Pressure 147/88 H 142/80 H 147/79 H Pulse Oximetry 96 97 96 12/17/18 21:00 12/17/18 21:15 12/17/18 21:23 Temperature Pulse Rate 105 H 105 H Respiratory Rate 36 H 36 H Blood Pressure 149/83 H 139/84 Pulse Oximetry 97 98 95 12/17/18 21:30 12/17/18 21:45 12/17/18 22:00 Temperature Pulse Rate 106 H 104 H 105 H Respiratory Rate 35 H 36 H 35 H Blood Pressure 145/83 H 139/83 148/92 H Pulse Oximetry 96 96 96 12/17/18 22:15 12/17/18 22:30 12/17/18 22:46 Temperature Pulse Rate 107 H 105 H 105 H Respiratory Rate 36 H 37 H 37 H Blood Pressure 141/76 H 137/79 157/66 H Pulse Oximetry 96 96 96 12/17/18 23:00 12/17/18 23:15 12/17/18 23:30 Temperature Pulse Rate 106 H 105 H 105 H Respiratory Rate 37 H 37 H 37 H Blood Pressure 138/78 143/79 H Pulse Oximetry 96 97 96 12/17/18 23:45 12/18/18 00:00 12/18/18 00:15 Temperature 98.7 F Pulse Rate 105 H 105 H 104 H Respiratory Rate 35 H 35 H 37 H Blood Pressure 136/81 144/83 H 153/84 H Pulse Oximetry 97 95 97 12/18/18 00:30 12/18/18 00:45 12/18/18 01:00 Temperature Pulse Rate 104 H 103 H 104 H Respiratory Rate 37 H 34 H 36 H Blood Pressure 139/87 147/82 H 139/83 Pulse Oximetry 96 96 96 12/18/18 01:15 12/18/18 01:30 12/18/18 01:45 Temperature Pulse Rate 104 H 104 H 103 H Respiratory Rate 36 H 36 H 35 H Blood Pressure 141/81 H 136/80 139/82 Pulse Oximetry 96 96 96 12/18/18 02:00 12/18/18 03:00 12/18/18 03:15 Temperature Pulse Rate 105 H 100 H 101 H Respiratory Rate 35 H 35 H 36 H Blood Pressure 145/80 H 139/78 159/80 H Pulse Oximetry 95 96 96 12/18/18 03:30 12/18/18 03:45 12/18/18 04:00 Temperature 98.1 F Pulse Rate 97 H 109 H 110 H Respiratory Rate 34 H 40 H 32 H Blood Pressure 146/76 H 167/107 H Pulse Oximetry 97 96 96 12/18/18 04:10 12/18/18 04:15 12/18/18 04:30 Temperature Pulse Rate 107 H 102 H 100 H Respiratory Rate 40 H 38 H 35 H Blood Pressure 136/96 H 139/88 153/81 H Pulse Oximetry 96 96 97 12/18/18 04:45 12/18/18 05:00 12/18/18 05:15 Temperature Pulse Rate 98 H 99 H 100 H Respiratory Rate 35 H 36 H 37 H Blood Pressure 141/84 H 145/86 H 148/84 H Pulse Oximetry 97 97 96 12/18/18 05:30 12/18/18 05:45 12/18/18 06:00 Temperature Pulse Rate 97 H 99 H 100 H Respiratory Rate 36 H 35 H 38 H Blood Pressure 134/81 Pulse Oximetry 96 96 94 L 12/18/18 06:26 12/18/18 07:50 12/18/18 07:51 Temperature Pulse Rate 97 H Respiratory Rate 28 H Blood Pressure Pulse Oximetry 98 98 Intake & Output 12/17/18 12/18/18 12/18/18 18:59 06:59 18:59 Intake Total 1600 / 1600 500 / 500 Output Total 450 / 450 650 / 650 Balance 1150 / 1150 -150 / -150 Weight 47 kg Intake: IV 1600 / 1600 500 / 500 NS Inj 1,000 ML @ 84 mls/hr IV. 1000 / 1000 CONT .[id number] [facility] Rx#:[id number] Cardene Inj 25 MG In NS Inj 240 500 / 500 500 / 500 ML @ 2.5 MG/HR 25 mls/hr IV. CONT TITRATE PRN Rx#:[id number] Magnesium Sulfate Inj 2 GM In 100 / 100 NS Inj 96 ML @ 50 mls/hr IV.SIG ONCE ONE Rx#:[id number] Oral 0 / 0 0 / 0 Output: Urine Amount (Catheter) 450 / 450 650 / 650 Condom 450 / 450 650 / 650 Other: # Incontinent Voids 1 Date of Last Bowel Movement 12/17/18 12/17/18 # Bowel Movements 0 0 Result Diagrams: 12/18/18 08:09 12/18/18 08:09 Other Results: Laboratory Results - last 12 hr 12/17/18 12/17/18 12/18/18 19:42 21:19 08:24 Sodium 149 H Potassium 3.4 L Chloride 116 H Carbon Dioxide 20.6 L Anion Gap 12 BUN 25 H Creatinine 1.13 Estimated GFR 66 L POC Glucose 138 H 125 H Random Glucose 116 H Calcium 8.5 Phosphorus 2.4 L Magnesium 2.0 Total Bilirubin 3.3 H AST 49 H ALT 22 Alkaline Phosphatase 68 Total Protein 7.0 D Albumin 3.3 L Imaging: Chest X-Ray 12/16/18 11:23 CONCLUSION: Asymmetrical apical parenchymal changes worse on the right. Otherwise negative Head CTA 12/16/18 12:04 CONCLUSION: 1. Negative for major branch vessel occlusion. . . Neck CTA 12/16/18 12:04 CONCLUSION: 1. Minimal atherosclerotic calcific vascular disease. No hemodynamically significant stenosis Head MRI 12/16/18 12:20 CONCLUSION: 1. Restricted diffusion and left MCA distribution indicating acute left MCA infarct. 2. No evidence of mass effect or herniation. Findings were discussed with Dr. Moore by Dr. Darden. Head CT 12/18/18 06:00 CONCLUSION: 1. Evolving left middle cerebral artery distribution infarct. 2. No midline shift. . . Objective Remarks: GENERAL: 63-year-old male currently resting in bed in mild respiratory distress SKIN: Warm and dry. No rash HEAD: Atraumatic. Normocephalic. EYES: Pupils equal and round. No scleral icterus. No injection or drainage. ENT: No nasal bleeding or discharge. Mucous membranes pink and moist. NECK: Trachea midline. No JVD. CARDIOVASCULAR: Regular rate and rhythm. S1, S2 predose 4. RESPIRATORY: Transmitted upper airway sounds clear with cough.. Breath sounds equal bilaterally. GASTROINTESTINAL: Abdomen soft, non-tender, nondistended. Hepatic and splenic margins not palpable. MUSCULOSKELETAL: Extremities without clubbing, cyanosis, or edema. No obvious deformities. NEUROLOGICAL: Arousable but not following commands. Looking left. Right facial droop. Withdraws to pain bilateral lower extremities. Assessment and Plan - Problem List (1) CVA (cerebral vascular accident) Code(s): I63.9 - Cerebral infarction, unspecified Status: Acute (2) Leukocytosis Code(s): D72.829 - Elevated white blood cell count, unspecified Status: Acute (3) Acute kidney injury Code(s): N17.9 - Acute kidney failure, unspecified Status: Acute (4) Total bilirubin, elevated Code(s): R17 - Unspecified jaundice Status: Acute (5) Tobacco abuse Code(s): Z72.0 - Tobacco use Status: Chronic - Assessment and Plan Plan: Neuro/Psych: Subacute left MCA CVA -distal M1 segment CT brain today- Evolving left middle cerebral artery distribution infarct. No midline shift. MRI brain revealed distal left MCA embolization with recanalization via the left sylvian vessels. CT Angio of the head neck essentially negative with exception of possible embolic events in the distal left M1 segment Neurology consultation. Dr. Ramírez recommended aspirin and systolic blood pressure 140 diastolic blood pressure -90 Continue ASA 300mg rectally Neuro checks Head of bed at 30 degrees CV: Hypertension As needed nicardipine labetalol to keep systolic blood pressure less than 220, diastolic was less than 120 Echo showed EF 55-60% EKG revealed normal sinus rhythm. Normal SD, QRS and QT intervals. Resp: Tobaccoism Continue with oxygen keep sats > 90% Incentive spirometry while awake As needed albuterol every 2 hours. As needed dyspnea Aspiration precautions. GI: Elevated total bilirubin Monitor LFT's. Pantoprazole for GI prophylaxis Docusate sodium/senna 1 tablet twice daily for bowel regimen N.p.o. status Maria G is deciding whether to initiate tube feeding. Await recommendations Endo: Sliding scale insulin Accu-Cheks to maintain euglycemia Check hemoglobin A1c still pending TSH within normal limits Renal: Acute kidney injury Hypernatremia Monitor renal function, I/O's, electrolytes replacement per protocol. Change IVF D5W@50ml/hr. Follow up on BMP Heme: Leukocytosis Monitor CBC daily. Will panculture ( Blood, sputum, UA with cx if indicated) Repeat CXR. Start Zosyn empirically for worsening leukocytosis ID: Monitor for signs and symptomatology of infection MSK: PT/OT/ST evaluate and treat Access -Utilize peripheral IV. Central line if indicated Prophylaxis -GI -pantoprazole -DVT -SCD/heparin subcu Follow up on labs Level 2 follow-up (1) CVA (cerebral vascular accident) Qualifiers: CVA mechanism: embolism Precerebral and cerebral artery: middle cerebral artery Laterality of affected vessel: left Qualified Code(s): I63.412 - Cerebral infarction due to embolism of left middle cerebral artery (2) Leukocytosis Qualifiers: Leukocytosis type: unspecified Qualified Code(s): D72.829 - Elevated white blood cell count, unspecified
[2018-12-18] MEDS ORDERED: Dextrose 5% in Water Inj 1,000 ML IV.CONT SCH (08:45)
[2018-12-18 08:59] LABS: Alanine Aminotransferase 20 U/L (12-78); Albumin 3.1 g/dL (3.4-5.0); Anion Gap 10 meq/L (5-15); Aspartate Aminotransferase 52 U/L (15-37); Blood Urea Nitrogen 31 mg/dL (7-18); Calcium 8.4 mg/dL (8.5-10.1); Chloride 119 meq/L (98-107); Glomerular Filtration Rate 62 mL/min (>89); Glucose,Random 135 mg/dL (74-106); Magnesium 1.9 mg/dL (1.5-2.5); Phosphorus 2.8 mg/dL (2.5-4.9); Potassium 3.2 meq/L (3.5-5.1); Sodium 150 meq/L (136-145)
[2018-12-18 09:01] LABS: Alkaline Phosphatase 71 U/L (45-117); Total Protein 7.1 g/dL (6.4-8.2)
[2018-12-18 09:21] LABS: Monocytes 4 % (0-8)
[2018-12-18 09:22] LABS: Platelet Estimate Normal (Normal); Platelet Morphology Normal (Normal)
--- NOTE | 2018-12-18 10:16 | XR ---
EXAM DATE: 12/18/2018 10:12 AM EST AGE/SEX: 63 years / Male INDICATIONS: Respiratory status. CLINICAL DATA: This is the patient's subsequent encounter. Patient reports that signs and symptoms h ave been present for 2 days and indicates a pain score of Nonresponsive. MEDICAL/SURGICAL HISTORY: None. None. COMPARISON: [place], CHEST 1V SINGLE AP, 12/16/2018. . FINDINGS: The heart size is normal. The lungs are hyperinflated. There is increased density seen in the perihil ar and lower lungs bilaterally. CONCLUSION: Suspected edema in the mid and lower lungs. Electronically signed by: Shelton Casas MD Board Certified Radiologist 12/18/2018 10:15 AM EST
--- NOTE | 2018-12-18 10:57 | P.PNNEU ---
Subjective Active Medications: Active Medications Acetaminophen (Tylenol) 650 mg PO Q6H PRN PRN Reason: PAIN 1-10 AND/OR FEVER >101F Al Hydroxide/Mg Hydroxide (Milk Of Natacha Fabian) 30 ml PO Q12H PRN PRN Reason: Mild Constipation Albuterol (Albuterol Neb (Prn)) 2.5 mg NEB Q2HR NEB PRN PRN Reason: SHORTNESS OF BREATH/WHEEZING Last Admin: 12/18/18 06:26 Dose: 2.5 mg Aspirin (Aspirin Supp) 300 mg RECTAL DAILY [facility] Last Admin: 12/18/18 08:19 Dose: 300 mg Bisacodyl (Dulcolax Supp) 10 mg RECTAL DAILY PRN PRN Reason: SEVERE CONSITIPATION Chlorhexidine Gluconate (Chlorhexidine 2% Cloth) 3 pack TOPICAL DAILY@0400 [facility] Stop: 12/22/18 03:59 Last Admin: 12/18/18 03:20 Dose: 3 pack Chlorhexidine Gluconate (Chlorhexidine 2% Cloth) 3 pack TOPICAL DAILY@0400 PRN PRN Reason: Extra cloth needed Stop: 12/22/18 03:59 Dextrose (D50w Vial) 50 ml IV.PUSH UNSCH PRN PRN Reason: PER HYPOGLYCEMIA PROTOCOL Glucagon (Glucagon Inj) 1 mg OTHER UNSCH PRN PRN Reason: for Hypoglycemia Protocol Heparin Sodium (Porcine) (Heparin Inj) 5,000 units SQ Q12H [facility] Last Admin: 12/18/18 03:20 Dose: 5,000 units Hydralazine HCl (Apresoline Inj) 10 mg IV.PUSH Q1H PRN PRN Reason: Sbp>150, Dbp>90 Multivitamins 10 ml/ Thiamine HCl 100 mg/ Folic Acid 1 mg/Sodium Chloride 511.2 mls @ 125 mls/hr IV.SIG Q24H [facility] Stop: 12/18/18 20:06 Last Admin: 12/17/18 16:12 Dose: 125 mls/hr Magnesium Sulfate 4 gm/ Sodium (Chloride) 100 mls @ 50 mls/hr IV.SIG UNSCH PRN PRN Reason: For Magnesium 0.9 - 1.1 mg/dL Magnesium Sulfate 2 gm/ Sodium (Chloride) 100 mls @ 50 mls/hr IV.SIG UNSCH PRN PRN Reason: For Magnesium 1.2 - 1.6 mg/dL Potassium Chloride (Kcl 40 Meq Premix Inj) 40 meq in 100 mls @ 50 mls/hr IV.SIG Q2H PRN PRN Reason: For Potassium 2.8 - 3.2 mEq/L Potassium Chloride (Kcl 20 Meq Premix Inj) 20 meq in 100 mls @ 50 mls/hr IV.SIG Q2H PRN PRN Reason: For Potassium 3.3 - 3.5 mEq/L Potassium Chloride (Kcl 40 Meq Premix Inj) 40 meq in 100 mls @ 25 mls/hr IV.SIG UNSCH PRN PRN Reason: For Potassium 3.3 - 3.5 mEq/L Potassium Chloride (Kcl 20 Meq Premix Inj) 20 meq in 100 mls @ 50 mls/hr IV.SIG Q2H PRN PRN Reason: For Potassium 2.8 - 3.2 mEq/L Potassium Phosphate 30 mmol/ (Sodium Chloride) 260 mls @ 42 mls/hr IV.SIG UNSCH PRN PRN Reason: SEE LABEL COMMENTS Last Admin: 12/17/18 06:32 Dose: 42 mls/hr Sodium Phosphate 30 mmol/ (Sodium Chloride) 260 mls @ 42 mls/hr IV.SIG UNSCH PRN PRN Reason: For Phosphorus < 2.5 mg/dL Dextrose (D5w Inj) 1,000 mls @ 50 mls/hr IV.CONT .Q20H [facility] Last Admin: 12/18/18 09:37 Dose: 50 mls/hr Piperacillin/Tazobactam/Dextrose (Zosyn 4.5 Gm Premix) 4.5 gm in 100 mls @ 200 mls/hr IV.SIG Q6H [facility] Insulin Aspart (Novolog Insulin Correctional Sugar Inj) 0 unit SQ ACHS [facility]; Protocol Last Admin: 12/18/18 08:26 Dose: Not Given Labetalol HCl (Trandate Inj) 10 mg IV.PUSH Q1H PRN PRN Reason: Sbp>150, Dbp>90, Hr>65 Lactulose (Lactulose Liq) 30 ml PO DAILY PRN PRN Reason: SEVERE CONSITIPATION Magnesium Oxide (Mag-Ox) 800 mg PO UNSCH PRN PRN Reason: For Magnesium 1.2 - 1.6 mg/dL Pantoprazole Sodium (Protonix Inj) 40 mg IV.PUSH DAILY [facility] Last Admin: 12/18/18 08:26 Dose: 40 mg Potassium Chloride (Kcl Liq) 40 meq PO UNSCH PRN PRN Reason: Potassium level 3.3-3.5 mEq/L Potassium Chloride (Kcl Liq) 40 meq PO UNSCH PRN PRN Reason: POTASSIUM LESS THAN 3.5 Potassium Phosphate (K-Phos Original) 2,000 mg PO Q4H PRN PRN Reason: Phosphorus Less Than 2.5 mg/dL Potassium Phosphate (K-Phos Original) 2,000 mg PO UNSCH PRN PRN Reason: SEE LABEL COMMENTS Pravastatin Sodium (Pravachol) 40 mg PO HS [facility] Last Admin: 12/17/18 21:07 Dose: Not Given Senna/Docusate Sodium (Claudia-Colace) 1 tab PO BID [facility] Last Admin: 12/18/18 08:26 Dose: Not Given Sennosides (Senokot) 17.2 mg PO Q12H PRN PRN Reason: Moderate Constipation Sodium Chloride (Ns Flush) 2 ml IV.FLUSH BID [facility] Last Admin: 12/18/18 08:26 Dose: 2 ml Sodium Chloride (Ns Flush) 2 ml IV.FLUSH UNSCH PRN PRN Reason: FLUSH AFTER USING IV ACCESS Allergies/Adverse Reactions: Allergies Allergy/AdvReac Type Severity Reaction Status Date / Time No Known Allergies Allergy Verified 12/16/18 13:02 Physical Exam Vital signs: Vital Signs 12/17/18 11:00 12/17/18 11:15 12/17/18 11:30 Temperature Pulse Rate 99 H 99 H 96 H Respiratory Rate 34 H 33 H 31 H Blood Pressure 155/81 H 147/82 H 143/78 H Pulse Oximetry 95 94 L 94 L 12/17/18 11:45 12/17/18 12:00 12/17/18 12:15 Temperature 98.3 F Pulse Rate 96 H 96 H 94 H Respiratory Rate 31 H 30 H 30 H Blood Pressure 141/79 H 151/80 H 147/80 H Pulse Oximetry 97 96 96 12/17/18 12:30 12/17/18 12:45 12/17/18 13:00 Temperature Pulse Rate 97 H 97 H 100 H Respiratory Rate 33 H 32 H 30 H Blood Pressure 151/80 H 149/78 H 151/81 H Pulse Oximetry 96 95 93 L 12/17/18 13:15 12/17/18 13:30 12/17/18 13:45 Temperature Pulse Rate 100 H 97 H 100 H Respiratory Rate 35 H 33 H 33 H Blood Pressure 142/80 H 144/82 H 150/83 H Pulse Oximetry 95 96 95 12/17/18 14:00 12/17/18 14:15 12/17/18 14:30 Temperature Pulse Rate 101 H 101 H 98 H Respiratory Rate 34 H 33 H 27 H Blood Pressure 153/86 H 149/84 H 150/82 H Pulse Oximetry 95 96 96 12/17/18 14:45 12/17/18 15:00 12/17/18 15:15 Temperature Pulse Rate 101 H 101 H 101 H Respiratory Rate 24 25 H 27 H Blood Pressure 160/86 H 140/78 155/84 H Pulse Oximetry 95 93 L 92 L 12/17/18 15:30 12/17/18 15:45 12/17/18 16:00 Temperature 99.0 F Pulse Rate 101 H 105 H 101 H Respiratory Rate 28 H 29 H 27 H Blood Pressure 145/81 H 120/81 147/83 H Pulse Oximetry 93 L 92 L 94 L 12/17/18 16:15 12/17/18 16:30 12/17/18 16:45 Temperature Pulse Rate 101 H 104 H 102 H Respiratory Rate 30 H 26 H 34 H Blood Pressure 146/81 H 160/91 H 159/91 H Pulse Oximetry 94 L 93 L 95 12/17/18 17:00 12/17/18 17:15 12/17/18 17:30 Temperature Pulse Rate 101 H 100 H 100 H Respiratory Rate 33 H 32 H 34 H Blood Pressure 140/81 152/88 H 149/86 H Pulse Oximetry 96 97 95 12/17/18 17:45 12/17/18 18:00 12/17/18 19:45 Temperature Pulse Rate 101 H 103 H Respiratory Rate 33 H 32 H Blood Pressure 149/86 H 150/86 H 142/79 H Pulse Oximetry 95 94 L 12/17/18 20:00 12/17/18 20:15 12/17/18 20:30 Temperature 98.2 F Pulse Rate 107 H 109 H 105 H Respiratory Rate 36 H 35 H 37 H Blood Pressure 145/80 H 147/88 H 142/80 H Pulse Oximetry 97 96 97 12/17/18 20:45 12/17/18 21:00 12/17/18 21:15 Temperature Pulse Rate 107 H 105 H 105 H Respiratory Rate 36 H 36 H 36 H Blood Pressure 147/79 H 149/83 H 139/84 Pulse Oximetry 96 97 98 12/17/18 21:23 12/17/18 21:30 12/17/18 21:45 Temperature Pulse Rate 106 H 104 H Respiratory Rate 35 H 36 H Blood Pressure 145/83 H 139/83 Pulse Oximetry 95 96 96 12/17/18 22:00 12/17/18 22:15 12/17/18 22:30 Temperature Pulse Rate 105 H 107 H 105 H Respiratory Rate 35 H 36 H 37 H Blood Pressure 148/92 H 141/76 H 137/79 Pulse Oximetry 96 96 96 12/17/18 22:46 12/17/18 23:00 12/17/18 23:15 Temperature Pulse Rate 105 H 106 H 105 H Respiratory Rate 37 H 37 H 37 H Blood Pressure 157/66 H 138/78 Pulse Oximetry 96 96 97 12/17/18 23:30 12/17/18 23:45 12/18/18 00:00 Temperature Pulse Rate 105 H 105 H 105 H Respiratory Rate 37 H 35 H 35 H Blood Pressure 143/79 H 136/81 144/83 H Pulse Oximetry 96 97 95 12/18/18 00:15 12/18/18 00:30 12/18/18 00:45 Temperature 98.7 F Pulse Rate 104 H 104 H 103 H Respiratory Rate 37 H 37 H 34 H Blood Pressure 153/84 H 139/87 147/82 H Pulse Oximetry 97 96 96 12/18/18 01:00 12/18/18 01:15 12/18/18 01:30 Temperature Pulse Rate 104 H 104 H 104 H Respiratory Rate 36 H 36 H 36 H Blood Pressure 139/83 141/81 H 136/80 Pulse Oximetry 96 96 96 12/18/18 01:45 12/18/18 02:00 12/18/18 03:00 Temperature Pulse Rate 103 H 105 H 100 H Respiratory Rate 35 H 35 H 35 H Blood Pressure 139/82 145/80 H 139/78 Pulse Oximetry 96 95 96 12/18/18 03:15 12/18/18 03:30 12/18/18 03:45 Temperature Pulse Rate 101 H 97 H 109 H Respiratory Rate 36 H 34 H 40 H Blood Pressure 159/80 H 146/76 H 167/107 H Pulse Oximetry 96 97 96 12/18/18 04:00 12/18/18 04:10 12/18/18 04:15 Temperature 98.1 F Pulse Rate 110 H 107 H 102 H Respiratory Rate 32 H 40 H 38 H Blood Pressure 136/96 H 139/88 Pulse Oximetry 96 96 96 12/18/18 04:30 12/18/18 04:45 12/18/18 05:00 Temperature Pulse Rate 100 H 98 H 99 H Respiratory Rate 35 H 35 H 36 H Blood Pressure 153/81 H 141/84 H 145/86 H Pulse Oximetry 97 97 97 12/18/18 05:15 12/18/18 05:30 12/18/18 05:45 Temperature Pulse Rate 100 H 97 H 99 H Respiratory Rate 37 H 36 H 35 H Blood Pressure 148/84 H 134/81 Pulse Oximetry 96 96 96 12/18/18 06:00 12/18/18 06:15 12/18/18 06:26 Temperature Pulse Rate 100 H 100 H 97 H Respiratory Rate 38 H 34 H 28 H Blood Pressure 145/91 H Pulse Oximetry 94 L 91 L 12/18/18 06:30 12/18/18 06:45 12/18/18 07:00 Temperature Pulse Rate 97 H 98 H 99 H Respiratory Rate 33 H 34 H 33 H Blood Pressure 135/79 137/82 138/85 Pulse Oximetry 100 99 98 12/18/18 07:15 12/18/18 07:30 12/18/18 07:45 Temperature Pulse Rate 100 H 101 H 103 H Respiratory Rate 34 H 34 H 35 H Blood Pressure 151/85 H 149/82 H 150/80 H Pulse Oximetry 99 97 95 12/18/18 07:50 12/18/18 07:51 12/18/18 08:00 Temperature 98.4 F Pulse Rate 101 H Respiratory Rate 33 H Blood Pressure 144/86 H Pulse Oximetry 98 98 96 12/18/18 08:15 12/18/18 08:28 12/18/18 08:30 Temperature Pulse Rate 100 H 105 H 104 H Respiratory Rate 33 H 36 H 32 H Blood Pressure 141/86 H 149/87 H 149/87 H Pulse Oximetry 96 87 L 87 L 12/18/18 08:45 12/18/18 09:00 12/18/18 09:15 Temperature Pulse Rate 102 H 102 H 101 H Respiratory Rate 31 H 33 H 32 H Blood Pressure 143/76 H 146/79 H 142/80 H Pulse Oximetry 88 L 86 L 87 L 12/18/18 09:30 12/18/18 09:45 12/18/18 10:00 Temperature Pulse Rate 100 H 99 H 98 H Respiratory Rate 31 H 29 H 27 H Blood Pressure 142/80 H 140/78 Pulse Oximetry 88 L 90 L 95 12/18/18 10:01 12/18/18 10:06 12/18/18 10:15 Temperature Pulse Rate 98 H 96 H 97 H Respiratory Rate 29 H 29 H 26 H Blood Pressure 110/82 136/84 135/85 Pulse Oximetry 96 96 12/18/18 10:30 Temperature Pulse Rate 96 H Respiratory Rate 30 H Blood Pressure 132/75 Pulse Oximetry 94 L Intake & Output 12/17/18 12/18/18 12/18/18 18:59 06:59 18:59 Intake Total 1600 / 1600 1500 / 1500 Output Total 450 / 450 650 / 650 Balance 1150 / 1150 850 / 850 Weight 47 kg Intake: IV 1600 / 1600 1500 / 1500 NS Inj 1,000 ML @ 84 mls/hr IV. 1000 / 1000 1000 / 1000 CONT .[id number] [facility] Rx#:[id number] Cardene Inj 25 MG In NS Inj 240 500 / 500 500 / 500 ML @ 2.5 MG/HR 25 mls/hr IV. CONT TITRATE PRN Rx#:[id number] Magnesium Sulfate Inj 2 GM In 100 / 100 NS Inj 96 ML @ 50 mls/hr IV.SIG ONCE ONE Rx#:[id number] Oral 0 / 0 0 / 0 Output: Urine Amount (Catheter) 450 / 450 650 / 650 Condom 450 / 450 650 / 650 Other: # Incontinent Voids 1 Date of Last Bowel Movement 12/17/18 12/17/18 12/17/18 # Bowel Movements 0 0 Narrative: eyes and head to left mute not folow commands awake 0/5 rue and rle some tone and can keep knee up a little - Urinary Catheter Management Condom Cath placed during this visit: no Objective Laboratory Results - last 24 hr 12/17/18 12/17/18 12/17/18 04:55 12:39 17:29 WBC RBC Hgb Hct MCV MCH MCHC RDW Plt Count MPV Prelim Diff (Auto) Neut % (Auto) Lymph % (Auto) [place] % (Auto) Eos % (Auto) Baso % (Auto) Neut # (Auto) Lymph # (Auto) [place] # (Auto) Eos # (Auto) Baso # (Auto) WBC Differential Seg Neuts % (Manual) Band Neuts % (Manual) Monocytes % (Manual) Abs Neuts (Manual) Differential Comment Platelet Estimate Platelet Morphology Sodium Potassium Chloride Carbon Dioxide Anion Gap BUN Creatinine Estimated GFR POC Glucose 123 H 127 H Random Glucose Hemoglobin A1c 5.3 Calcium Phosphorus Magnesium Total Bilirubin AST ALT Alkaline Phosphatase Total Protein Albumin 12/17/18 12/17/18 12/18/18 19:42 21:19 08:09 WBC 30.1 H RBC 4.67 Hgb 14.1 Hct 39.9 MCV 85.3 MCH 30.2 MCHC 35.4 RDW 15.1 Plt Count 289 MPV 7.8 Prelim Diff (Auto) Slide review pending Neut % (Auto) 93.5 H Lymph % (Auto) 1.8 L [place] % (Auto) 4.5 Eos % (Auto) 0.0 Baso % (Auto) 0.2 Neut # (Auto) 28.1 H Lymph # (Auto) 0.6 L [place] # (Auto) 1.3 H Eos # (Auto) 0.0 Baso # (Auto) 0.1 WBC Differential Manual diff final Seg Neuts % (Manual) 95 H Band Neuts % (Manual) 1 Monocytes % (Manual) 4 Abs Neuts (Manual) 28.9 H Differential Comment . Platelet Estimate Normal Platelet Morphology Normal Sodium 149 H Potassium 3.4 L Chloride 116 H Carbon Dioxide 20.6 L Anion Gap 12 BUN 25 H Creatinine 1.13 Estimated GFR 66 L POC Glucose 138 H Random Glucose 116 H Hemoglobin A1c Calcium 8.5 Phosphorus 2.4 L Magnesium 2.0 Total Bilirubin 3.3 H AST 49 H ALT 22 Alkaline Phosphatase 68 Total Protein 7.0 D Albumin 3.3 L 12/18/18 12/18/18 08:09 08:24 WBC RBC Hgb Hct MCV MCH MCHC RDW Plt Count MPV Prelim Diff (Auto) Neut % (Auto) Lymph % (Auto) [place] % (Auto) Eos % (Auto) Baso % (Auto) Neut # (Auto) Lymph # (Auto) [place] # (Auto) Eos # (Auto) Baso # (Auto) WBC Differential Seg Neuts % (Manual) Band Neuts % (Manual) Monocytes % (Manual) Abs Neuts (Manual) Differential Comment Platelet Estimate Platelet Morphology Sodium 150 H Potassium 3.2 L Chloride 119 H Carbon Dioxide 21.0 Anion Gap 10 BUN 31 H Creatinine 1.19 Estimated GFR 62 L POC Glucose 125 H Random Glucose 135 H Hemoglobin A1c Calcium 8.4 L Phosphorus 2.8 Magnesium 1.9 Total Bilirubin 3.8 H AST 52 H ALT 20 Alkaline Phosphatase 71 Total Protein 7.1 Albumin 3.1 L Review/Management - Diagnosis (1) CVA (cerebral vascular accident) Code(s): I63.9 - Cerebral infarction, unspecified Status: Acute Current Visit: Yes (2) Acute kidney injury Code(s): N17.9 - Acute kidney failure, unspecified Status: Acute Current Visit: Yes (3) Tobacco abuse Code(s): Z72.0 - Tobacco use Status: Chronic Current Visit: Yes - Review/Management Plan: -Subacute left MCA stroke not a candidate for iv tPA because of presentation outside the therapeutic window. -Hypertension -Tobaccoism -Acute kidney injury -Leukocytosis Neuro checks Q1h Telemetry Goal BP 130-135/75-80 NPO PT/OT, evaluate and treat GI prophylaxis DVT prophylaxis The case was discussed with at bed side Neurology will follow up 12/18/18 left mca cva with distal left mca clot large left mca cva check eeg if neg family considering comfort care vs g tube fu ldl echo neg sr now (1) CVA (cerebral vascular accident) Qualifiers: Qualified Code(s): I63.412 - Cerebral infarction due to embolism of left middle cerebral artery
[2018-12-18] MEDS: Piperacil/Tazo 4.5 GM Premix 4.5 GM/100 ML BAG IV.SIG SCH ×2 (11:10→16:21)
--- NOTE | 2018-12-18 11:23 | P.CONPAL ---
Consult Service: Palliative Care Requesting Physician: Rocky Haskins Reason for Consult: a. To assist with evaluation and management of symptoms including: Altered mental status, at risk for pain b. To assist medical decision maker(s) with: better understanding of current medical conditions; weighing benefits/burdens of medical treatment options; making medical treatment decisions. Primary Care Provider: No Primary Care Physician History of Present Illness History of Present Illness: Mr. Obrien is a 63-year-old who presented to the emergency room on 12/16/18 for evaluation and treatment. According to report from family in the emergency room, patient had not been able to talk and had altered mentation for 3 days prior to presenting to the emergency room. It is also reported that patient has never been to a doctor for many years and he has no known medical history except tobacco use. Patient was aphasic at time of presentation to the emergency room. Stroke alert called. ER course: * Vital signs: Temperature 98.8F, pulse 97, respiratory rate 16, BP 211/146, pulse oximetry 96% * EKG showed sinus rhythm with a heart rate of 90 * Head CT showed atrophy, significant periventricular white matter changes, otherwise negative. * Chest x-ray showed asymmetrical apical parenchymal changes worse on the right , thoracolumbar scoliosis, degenerative changes to bilateral shoulders. * Head CTA revealed poor filling of the distal MCA branches on left suggesting embolic occlusion distal M1 with recanalization. No embolic disease on the right. Moderate atherosclerotic carotid disease present in the cavernous carotid. Both vertebral arteries present with some calcification mid left vertebral. * CTA neck revealed minimal atherosclerotic calcific vascular disease. * Head MRI revealed restricted diffusion in left MCA indicating acute left MCA infarct with no evidence of mass-effect or herniation. * Laboratory workup revealed WBC 13.6, hemoglobin 15.9, hematocrit 46.6, platelet count 353, PT 11.4, INR 1.1, APTT 30.0, sodium 141, potassium 3.5, BUN/ creatinine 38/1.45, random glucose 115, total bilirubin 1.5, AST 24, ALT 17, troponin less than 0.02, total protein 8.5, albumin 4.2, TSH 2.180. * Urinalysis negative for leukocyte Estrace-culture not indicated. * Unfortunately, patient was not a candidate for parenteral TPA due to late presentation to the emergency room from the time of symptom onset. * Aspirin suppository administered in the ER, IV fluids started. * Patient admitted for further evaluation and treatment under critical care physicians. Family made patient a DNR. Neurology Dr. Ramírez consulted on 12/16/18 to evaluate and manage patient with a stroke, recommended echocardiogram, check hemoglobin A1c and lipid panel, keep head of bed flat for 24 hours and monitor blood pressure. Echocardiogram on 12/17/18 revealed normal left ventricular systolic function and an ejection fraction in the range of 55-60%. Physical therapy, and occupational therapy consulted, both recommend continued therapy in rehab. Speech therapy evaluated patient on 12/17/18, recommended n.p.o. Follow-up head CT on 12/18/18 showing evolving left middle cerebral artery distribution infarct. Clinical course complicated with aphasia, dysphagia and altered mentation. Palliative care consulted to assist with symptom management and establishment of goals of medical treatment. Patient seen and examined in his room on MICU in the presence of his father Camille Cisneros and spouse Camille Cummins. Patient is in bed, awake, aphasic , right-sided facial droop, and appears to have right-sided neglect and right- sided hemiplegia. Introduced palliative care and his role in symptom management and establishment of goals of medical treatment. Obtained psychosocial, past medical history and events leading to this hospitalization. According to family patient has always refused to go and see a primary care physician all his life. The only medical history they can think of is that he had chronic back pain from an injury he sustained when he was in high school. Patient has never completed advanced directives though his and father state that patient would not like to continue living if he has to end up with a feeding tube or in a snf. They also feel that neuro deficits that patient is presenting with now would definitely affect his quality of life. Patient`s spouse with the support of patient's father has decided to forego any further aggressive treatment and transition to comfort oriented care through hospice services. Patient's father is well informed about hospice from a previous experience. Hospice consult placed. Palliative care contact information provided. . Function/Cognitive Trajectory: 3 days prior to presentation to the emergency room on 12/16/18, patient was independent of all his ADLs and was a very active person. Patient developed aphasia and had altered mentation 3 days prior to presenting to the emergency room. . Review of Systems Constitutional: Reports headache(s) (3 days prior to presenting to the hospital. ), Denies weakness, Denies weight loss Eyes: Denies bulging eyes Ears, Nose, Mouth, and Throat: Denies nasal discharge Cardiovascular: Denies foot swelling, Denies generalized swelling, Denies leg swelling Respiratory: Denies cough Gastrointestinal: Denies vomiting Genitourinary: Denies difficulty urinating, Denies urinary incontinence Musculoskeletal: Denies joint swelling, Denies limited joint movement Skin/Breast: Denies lesions, Denies sores Neurologic: Reports abnormal speech, Reports confusion, Reports headache(s), Reports other (Aphasic with altered mental status 3 days prior to presenting to the ER.) Psychiatric: Denies change in appetite, Denies memory loss Endocrine: Denies increased urination Hematologic/Lymphatic: Denies easy bruising ROS obtained from family, clinical observation and EMR. . [facility] - History History Provided By: Family Member, Medical Record - Medical History Medical History: Medical History (Last Updated 12/18/18 @ 13:17 by Michelle Berrios) Chronic back pain Tobacco abuse - Surgical History Surgical History: Surgical History (Last Reviewed 12/18/18 @ 07:59 by Babak Golden) No history of previous surgery - Family History Family History: Family History (Last Updated 12/18/18 @ 13:19 by Michelle Berrios) Father Stroke Mother Pulmonary embolism Sister Spina bifida Other Family history non-contributory - Social History I have reviewed the patient's Social History: Yes - Tobacco History Second Hand Smoke Exposure: Yes Tobacco Use In Past 30 Days: Yes Smoking Status: Current every day smoker Tobacco Type: Cigarettes - Alcohol History How Often Do You Have a Drink Containing Alcohol: Never - Substance Use History Substance History: Active Abuse - Substance Use Type Marijuana Status: Active Route Used: Inhalation - Travel History Recent Travel in the [place] Within the Last 8 Weeks: No Recent Travel Out of the Country Within the Last 8 Weeks: No - Immunization History Tetanus Immunization: Unsure Medications and Allergies Active Medications: Active Medications Acetaminophen (Tylenol) 650 mg PO Q6H PRN PRN Reason: PAIN 1-10 AND/OR FEVER >101F Al Hydroxide/Mg Hydroxide (Milk Of Magnesia Liq) 30 ml PO Q12H PRN PRN Reason: Mild Constipation Albuterol (Albuterol Neb (Prn)) 2.5 mg NEB Q2HR NEB PRN PRN Reason: SHORTNESS OF BREATH/WHEEZING Last Admin: 12/18/18 06:26 Dose: 2.5 mg Aspirin (Aspirin Supp) 300 mg RECTAL DAILY ON LICENSE OF [facility] Last Admin: 12/18/18 08:19 Dose: 300 mg Bisacodyl (Dulcolax Supp) 10 mg RECTAL DAILY PRN PRN Reason: SEVERE CONSITIPATION Chlorhexidine Gluconate (Chlorhexidine 2% Cloth) 3 pack TOPICAL DAILY@0400 ON LICENSE OF [facility] Stop: 12/22/18 03:59 Last Admin: 12/18/18 03:20 Dose: 3 pack Chlorhexidine Gluconate (Chlorhexidine 2% Cloth) 3 pack TOPICAL DAILY@0400 PRN PRN Reason: Extra cloth needed Stop: 12/22/18 03:59 Dextrose (D50w Vial) 50 ml IV.PUSH UNSCH PRN PRN Reason: PER HYPOGLYCEMIA PROTOCOL Glucagon (Glucagon Inj) 1 mg OTHER UNSCH PRN PRN Reason: for Hypoglycemia Protocol Heparin Sodium (Porcine) (Heparin Inj) 5,000 units SQ Q12H ON LICENSE OF [facility] Last Admin: 12/18/18 03:20 Dose: 5,000 units Hydralazine HCl (Apresoline Inj) 10 mg IV.PUSH Q1H PRN PRN Reason: Sbp>150, Dbp>90 Multivitamins 10 ml/ Thiamine HCl 100 mg/ Folic Acid 1 mg/Sodium Chloride 511.2 mls @ 125 mls/hr IV.SIG Q24H ON LICENSE OF [facility] Stop: 12/18/18 20:06 Last Admin: 12/17/18 16:12 Dose: 125 mls/hr Magnesium Sulfate 4 gm/ Sodium (Chloride) 100 mls @ 50 mls/hr IV.SIG UNSCH PRN PRN Reason: For Magnesium 0.9 - 1.1 mg/dL Magnesium Sulfate 2 gm/ Sodium (Chloride) 100 mls @ 50 mls/hr IV.SIG UNSCH PRN PRN Reason: For Magnesium 1.2 - 1.6 mg/dL Potassium Chloride (Kcl 40 Meq Premix Inj) 40 meq in 100 mls @ 50 mls/hr IV.SIG Q2H PRN PRN Reason: For Potassium 2.8 - 3.2 mEq/L Potassium Chloride (Kcl 20 Meq Premix Inj) 20 meq in 100 mls @ 50 mls/hr IV.SIG Q2H PRN PRN Reason: For Potassium 3.3 - 3.5 mEq/L Potassium Chloride (Kcl 40 Meq Premix Inj) 40 meq in 100 mls @ 25 mls/hr IV.SIG UNSCH PRN PRN Reason: For Potassium 3.3 - 3.5 mEq/L Potassium Chloride (Kcl 20 Meq Premix Inj) 20 meq in 100 mls @ 50 mls/hr IV.SIG Q2H PRN PRN Reason: For Potassium 2.8 - 3.2 mEq/L Potassium Phosphate 30 mmol/ (Sodium Chloride) 260 mls @ 42 mls/hr IV.SIG UNSCH PRN PRN Reason: SEE LABEL COMMENTS Last Admin: 12/17/18 06:32 Dose: 42 mls/hr Sodium Phosphate 30 mmol/ (Sodium Chloride) 260 mls @ 42 mls/hr IV.SIG UNSCH PRN PRN Reason: For Phosphorus < 2.5 mg/dL Dextrose (D5w Inj) 1,000 mls @ 50 mls/hr IV.CONT .Q20H JOSIAH Last Admin: 12/18/18 09:37 Dose: 50 mls/hr Piperacillin/Tazobactam/Dextrose (Zosyn 4.5 Gm Premix) 4.5 gm in 100 mls @ 200 mls/hr IV.SIG Q6H JOSIAH Insulin Aspart (Novolog Insulin Correctional Sugar Inj) 0 unit SQ ACHS JOSIAH; Protocol Last Admin: 12/18/18 08:26 Dose: Not Given Labetalol HCl (Trandate Inj) 10 mg IV.PUSH Q1H PRN PRN Reason: Sbp>150, Dbp>90, Hr>65 Lactulose (Lactulose Liq) 30 ml PO DAILY PRN PRN Reason: SEVERE CONSITIPATION Magnesium Oxide (Mag-Ox) 800 mg PO UNSCH PRN PRN Reason: For Magnesium 1.2 - 1.6 mg/dL Pantoprazole Sodium (Protonix Inj) 40 mg IV.PUSH DAILY JOSIAH Last Admin: 12/18/18 08:26 Dose: 40 mg Potassium Chloride (Kcl Liq) 40 meq PO UNSCH PRN PRN Reason: Potassium level 3.3-3.5 mEq/L Potassium Chloride (Kcl Liq) 40 meq PO UNSCH PRN PRN Reason: POTASSIUM LESS THAN 3.5 Potassium Phosphate (K-Phos Original) 2,000 mg PO Q4H PRN PRN Reason: Phosphorus Less Than 2.5 mg/dL Potassium Phosphate (K-Phos Original) 2,000 mg PO UNSCH PRN PRN Reason: SEE LABEL COMMENTS Pravastatin Sodium (Pravachol) 40 mg PO HS ON LICENSE OF [facility] Last Admin: 12/17/18 21:07 Dose: Not Given Senna/Docusate Sodium (Claudia-Colace) 1 tab PO BID ON LICENSE OF [facility] Last Admin: 12/18/18 08:26 Dose: Not Given Sennosides (Senokot) 17.2 mg PO Q12H PRN PRN Reason: Moderate Constipation Sodium Chloride (Ns Flush) 2 ml IV.FLUSH BID ON LICENSE OF [facility] Last Admin: 12/18/18 08:26 Dose: 2 ml Sodium Chloride (Ns Flush) 2 ml IV.FLUSH UNSCH PRN PRN Reason: FLUSH AFTER USING IV ACCESS Allergies Allergy/AdvReac Type Severity Reaction Status Date / Time No Known Allergies Allergy Verified 12/16/18 13:02 Home Medications Medication Instructions Recorded Confirmed Type No Known Home Medications 12/16/18 12/16/18 History Advance Directives Living Will: No Healthcare Surrogate: No Health Care Surrogate Name and Number: HCP: Camille Maria G (spouse) [phone] Power of Aerial Lineman: No Documented care wishes: Has never completed advanced directives. . Today's verbally stated goals: Patient is aphasic and confused. . Family/friends goals: Family (spouse and father) would like to forego any further aggressive treatment and transition to comfort oriented care only. Requested a hospice consult. . Ethical and Legal Issues: None identified at this time. . Physical Exam Vital Signs: Vital Signs - 24 hr 12/17/18 10:39 12/17/18 10:46 12/17/18 11:00 Temperature Pulse Rate 100 H 99 H 99 H Respiratory Rate 32 H 34 H Blood Pressure 142/80 H 155/81 H Pulse Oximetry 96 95 12/17/18 11:15 12/17/18 11:30 12/17/18 11:45 Temperature Pulse Rate 99 H 96 H 96 H Respiratory Rate 33 H 31 H 31 H Blood Pressure 147/82 H 143/78 H 141/79 H Pulse Oximetry 94 L 94 L 97 12/17/18 12:00 12/17/18 12:15 12/17/18 12:30 Temperature 98.3 F Pulse Rate 96 H 94 H 97 H Respiratory Rate 30 H 30 H 33 H Blood Pressure 151/80 H 147/80 H 151/80 H Pulse Oximetry 96 96 96 12/17/18 12:45 12/17/18 13:00 12/17/18 13:15 Temperature Pulse Rate 97 H 100 H 100 H Respiratory Rate 32 H 30 H 35 H Blood Pressure 149/78 H 151/81 H 142/80 H Pulse Oximetry 95 93 L 95 12/17/18 13:30 12/17/18 13:45 12/17/18 14:00 Temperature Pulse Rate 97 H 100 H 101 H Respiratory Rate 33 H 33 H 34 H Blood Pressure 144/82 H 150/83 H 153/86 H Pulse Oximetry 96 95 95 12/17/18 14:15 12/17/18 14:30 12/17/18 14:45 Temperature Pulse Rate 101 H 98 H 101 H Respiratory Rate 33 H 27 H 24 Blood Pressure 149/84 H 150/82 H 160/86 H Pulse Oximetry 96 96 95 12/17/18 15:00 12/17/18 15:15 12/17/18 15:30 Temperature Pulse Rate 101 H 101 H 101 H Respiratory Rate 25 H 27 H 28 H Blood Pressure 140/78 155/84 H 145/81 H Pulse Oximetry 93 L 92 L 93 L 12/17/18 15:45 12/17/18 16:00 12/17/18 16:15 Temperature 99.0 F Pulse Rate 105 H 101 H 101 H Respiratory Rate 29 H 27 H 30 H Blood Pressure 120/81 147/83 H 146/81 H Pulse Oximetry 92 L 94 L 94 L 12/17/18 16:30 12/17/18 16:45 12/17/18 17:00 Temperature Pulse Rate 104 H 102 H 101 H Respiratory Rate 26 H 34 H 33 H Blood Pressure 160/91 H 159/91 H 140/81 Pulse Oximetry 93 L 95 96 12/17/18 17:15 12/17/18 17:30 12/17/18 17:45 Temperature Pulse Rate 100 H 100 H 101 H Respiratory Rate 32 H 34 H 33 H Blood Pressure 152/88 H 149/86 H 149/86 H Pulse Oximetry 97 95 95 12/17/18 18:00 12/17/18 19:45 12/17/18 20:00 Temperature Pulse Rate 103 H 107 H Respiratory Rate 32 H 36 H Blood Pressure 150/86 H 142/79 H 145/80 H Pulse Oximetry 94 L 97 12/17/18 20:15 12/17/18 20:30 12/17/18 20:45 Temperature 98.2 F Pulse Rate 109 H 105 H 107 H Respiratory Rate 35 H 37 H 36 H Blood Pressure 147/88 H 142/80 H 147/79 H Pulse Oximetry 96 97 96 12/17/18 21:00 12/17/18 21:15 12/17/18 21:23 Temperature Pulse Rate 105 H 105 H Respiratory Rate 36 H 36 H Blood Pressure 149/83 H 139/84 Pulse Oximetry 97 98 95 12/17/18 21:30 12/17/18 21:45 12/17/18 22:00 Temperature Pulse Rate 106 H 104 H 105 H Respiratory Rate 35 H 36 H 35 H Blood Pressure 145/83 H 139/83 148/92 H Pulse Oximetry 96 96 96 12/17/18 22:15 12/17/18 22:30 12/17/18 22:46 Temperature Pulse Rate 107 H 105 H 105 H Respiratory Rate 36 H 37 H 37 H Blood Pressure 141/76 H 137/79 157/66 H Pulse Oximetry 96 96 96 12/17/18 23:00 12/17/18 23:15 12/17/18 23:30 Temperature Pulse Rate 106 H 105 H 105 H Respiratory Rate 37 H 37 H 37 H Blood Pressure 138/78 143/79 H Pulse Oximetry 96 97 96 12/17/18 23:45 12/18/18 00:00 12/18/18 00:15 Temperature 98.7 F Pulse Rate 105 H 105 H 104 H Respiratory Rate 35 H 35 H 37 H Blood Pressure 136/81 144/83 H 153/84 H Pulse Oximetry 97 95 97 12/18/18 00:30 12/18/18 00:45 12/18/18 01:00 Temperature Pulse Rate 104 H 103 H 104 H Respiratory Rate 37 H 34 H 36 H Blood Pressure 139/87 147/82 H 139/83 Pulse Oximetry 96 96 96 12/18/18 01:15 12/18/18 01:30 12/18/18 01:45 Temperature Pulse Rate 104 H 104 H 103 H Respiratory Rate 36 H 36 H 35 H Blood Pressure 141/81 H 136/80 139/82 Pulse Oximetry 96 96 96 12/18/18 02:00 12/18/18 03:00 12/18/18 03:15 Temperature Pulse Rate 105 H 100 H 101 H Respiratory Rate 35 H 35 H 36 H Blood Pressure 145/80 H 139/78 159/80 H Pulse Oximetry 95 96 96 12/18/18 03:30 12/18/18 03:45 12/18/18 04:00 Temperature 98.1 F Pulse Rate 97 H 109 H 110 H Respiratory Rate 34 H 40 H 32 H Blood Pressure 146/76 H 167/107 H Pulse Oximetry 97 96 96 12/18/18 04:10 12/18/18 04:15 12/18/18 04:30 Temperature Pulse Rate 107 H 102 H 100 H Respiratory Rate 40 H 38 H 35 H Blood Pressure 136/96 H 139/88 153/81 H Pulse Oximetry 96 96 97 12/18/18 04:45 12/18/18 05:00 12/18/18 05:15 Temperature Pulse Rate 98 H 99 H 100 H Respiratory Rate 35 H 36 H 37 H Blood Pressure 141/84 H 145/86 H 148/84 H Pulse Oximetry 97 97 96 12/18/18 05:30 12/18/18 05:45 12/18/18 06:00 Temperature Pulse Rate 97 H 99 H 100 H Respiratory Rate 36 H 35 H 38 H Blood Pressure 134/81 Pulse Oximetry 96 96 94 L 12/18/18 06:26 12/18/18 07:50 12/18/18 07:51 Temperature Pulse Rate 97 H Respiratory Rate 28 H Blood Pressure Pulse Oximetry 98 98 I&O: Intake & Output 12/16/18 12/17/18 12/18/18 12/19/18 06:59 06:59 06:59 06:59 Intake Total 3261.2 / 3261.2 3100 / 3100 Output Total 1050 / 1050 1100 / 1100 Balance 2211.2 / 2211.2 1999 Weight 117.5 kg 47 kg Physical Exam: CONSTITUTIONAL/GENERAL: This is an thin patient, in no apparent distress. TUBES/LINES/DRAINS: Nasal cannula, Coreas catheter, PIV SKIN: No jaundice, rashes, or lesions. Ecchymoses on upper extremities. No wounds seen anteriorly. Skin temperature appropriate. Not diaphoretic. HEAD: Atraumatic. Normocephalic. EYES: Pupils equal and round and reactive. No scleral icterus. No injection or drainage. Fundi not examined. ENT: Hearing grossly normal. Nose without bleeding or purulent drainage. NECK: Trachea midline. Supple, nontender. CARDIOVASCULAR: Regular rate and rhythm without murmurs, gallops, or rubs. No JVD. Peripheral pulses symmetric. RESPIRATORY/CHEST: Symmetric, unlabored respirations. Decreased breath sounds no wheezes, rales, or rhonchi. GASTROINTESTINAL: Abdomen soft, non-tender, nondistended. No hepato-splenomegaly , or palpable masses. No guarding. Bowel sounds present. GENITOURINARY: Without palpable bladder distension. Coreas catheter in place. MUSCULOSKELETAL: Extremities without clubbing, cyanosis, or edema. No joint tenderness or effusion noted. No calf tenderness. No mottling or clubbing. LYMPHATICS: No palpable cervical or supraclavicular adenopathy. NEUROLOGICAL: Patient is aphasic, spontaneously moving left upper and lower extremities and purposefully, right-sided hemiplegia, right-sided facial droop. PSYCHIATRIC: Unable to assess. Currently calm. Diagnostic Tests Laboratory: Laboratory Results - last 72 hr 12/16/18 12/16/18 12/16/18 11:15 11:15 11:15 WBC 13.6 H RBC 5.35 Hgb 15.9 Hct 46.6 MCV 87.1 MCH 29.8 MCHC 34.2 RDW 15.0 Plt Count 353 MPV 7.8 Prelim Diff (Auto) Neut % (Auto) 86.1 H Lymph % (Auto) 5.7 L Pope % (Auto) 7.5 Eos % (Auto) 0.0 Baso % (Auto) 0.7 Neut # (Auto) 11.7 H Lymph # (Auto) 0.8 L Pope # (Auto) 1.0 H Eos # (Auto) 0.0 Baso # (Auto) 0.1 WBC Differential . Seg Neuts % (Manual) Band Neuts % (Manual) Monocytes % (Manual) Abs Neuts (Manual) Differential Comment Auto diff final Platelet Estimate Platelet Morphology PT 11.4 INR 1.1 APTT 30.1 Sodium 141 Potassium 3.5 Chloride 103 Carbon Dioxide 23.2 Anion Gap 15 BUN 38 H Creatinine 1.45 H Estimated GFR 49 L POC Glucose Random Glucose 115 H Hemoglobin A1c Calcium 9.9 Phosphorus Magnesium 2.0 Total Bilirubin 1.5 H AST 24 ALT 17 Alkaline Phosphatase 84 Ammonia Troponin I Less than 0.02 L Total Protein 8.5 H Albumin 4.2 TSH 2.180 Urine Color Urine Clarity Urine pH Ur Specific [place] Urine Protein Urine Glucose (UA) Urine Ketones Urine Occult Blood Urine Nitrate Urine Bilirubin Urine Urobilinogen Ur Leukocyte Esterase Urine RBC Urine WBC Hyaline Casts Urine Mucus Micro UA Comment Ur Microscopic Review Urine Culture Comments Nasal Screen MRSA (PCR) 12/16/18 12/16/18 12/16/18 11:15 13:50 20:04 WBC RBC Hgb Hct MCV MCH MCHC RDW Plt Count MPV Prelim Diff (Auto) Neut % (Auto) Lymph % (Auto) Pope % (Auto) Eos % (Auto) Baso % (Auto) Neut # (Auto) Lymph # (Auto) Pope # (Auto) Eos # (Auto) Baso # (Auto) WBC Differential Seg Neuts % (Manual) Band Neuts % (Manual) Monocytes % (Manual) Abs Neuts (Manual) Differential Comment Platelet Estimate Platelet Morphology PT INR APTT Sodium Potassium Chloride Carbon Dioxide Anion Gap BUN Creatinine Estimated GFR POC Glucose 141 H Random Glucose Hemoglobin A1c Calcium Phosphorus Magnesium Total Bilirubin AST ALT Alkaline Phosphatase Ammonia 18 Troponin I Total Protein Albumin TSH Urine Color Yellow Urine Clarity Clear Urine pH 5.0 Ur Specific [place] 1.035 Urine Protein 30 H Urine Glucose (UA) Negative Urine Ketones 20 Urine Occult Blood Moderate H Urine Nitrate Negative Urine Bilirubin Negative Urine Urobilinogen Less than 2 Ur Leukocyte Esterase Negative Urine RBC 7 H Urine WBC 2 Hyaline Casts 3 Urine Mucus Few H Micro UA Comment Cath-culture not ind Ur Microscopic Review Not Reportable Urine Culture Comments Cath-cult not ind Nasal Screen MRSA (PCR) 12/16/18 12/17/18 12/17/18 22:30 04:55 04:55 WBC 21.6 H D RBC 5.10 Hgb 15.0 Hct 44.5 MCV 87.4 MCH 29.3 MCHC 33.6 RDW 15.1 Plt Count 331 MPV 7.4 Prelim Diff (Auto) Neut % (Auto) 88.7 H Lymph % (Auto) 2.7 L Pope % (Auto) 7.6 Eos % (Auto) 0.0 Baso % (Auto) 1.0 Neut # (Auto) 19.2 H Lymph # (Auto) 0.6 L Pope # (Auto) 1.6 H Eos # (Auto) 0.0 Baso # (Auto) 0.2 WBC Differential . Seg Neuts % (Manual) Band Neuts % (Manual) Monocytes % (Manual) Abs Neuts (Manual) Differential Comment Auto diff final Platelet Estimate Platelet Morphology PT INR APTT Sodium Potassium Chloride Carbon Dioxide Anion Gap BUN Creatinine Estimated GFR POC Glucose Random Glucose Hemoglobin A1c 5.3 Calcium Phosphorus Magnesium Total Bilirubin AST ALT Alkaline Phosphatase Ammonia Troponin I Total Protein Albumin TSH Urine Color Urine Clarity Urine pH Ur Specific [place] Urine Protein Urine Glucose (UA) Urine Ketones Urine Occult Blood Urine Nitrate Urine Bilirubin Urine Urobilinogen Ur Leukocyte Esterase Urine RBC Urine WBC Hyaline Casts Urine Mucus Micro UA Comment Ur Microscopic Review Urine Culture Comments Nasal Screen MRSA (PCR) Not detected 12/17/18 12/17/18 12/17/18 04:55 04:55 08:39 WBC RBC Hgb Hct MCV MCH MCHC RDW Plt Count MPV Prelim Diff (Auto) Neut % (Auto) Lymph % (Auto) Pope % (Auto) Eos % (Auto) Baso % (Auto) Neut # (Auto) Lymph # (Auto) Pope # (Auto) Eos # (Auto) Baso # (Auto) WBC Differential Seg Neuts % (Manual) Band Neuts % (Manual) Monocytes % (Manual) Abs Neuts (Manual) Differential Comment Platelet Estimate Platelet Morphology PT 11.7 H INR 1.2 APTT 29.9 Sodium 146 H Potassium 3.1 L Chloride 112 H D Carbon Dioxide 22.9 Anion Gap 11 BUN 27 H Creatinine 1.07 Estimated GFR 70 L POC Glucose 129 H Random Glucose 120 H Hemoglobin A1c Calcium 8.7 D Phosphorus 1.6 L Magnesium 1.7 Total Bilirubin 2.2 H AST 39 H ALT 20 Alkaline Phosphatase 77 Ammonia Troponin I Total Protein 7.7 D Albumin 3.8 TSH Urine Color Urine Clarity Urine pH Ur Specific [place] Urine Protein Urine Glucose (UA) Urine Ketones Urine Occult Blood Urine Nitrate Urine Bilirubin Urine Urobilinogen Ur Leukocyte Esterase Urine RBC Urine WBC Hyaline Casts Urine Mucus Micro UA Comment Ur Microscopic Review Urine Culture Comments Nasal Screen MRSA (PCR) 12/17/18 12/17/18 12/17/18 12:39 17:29 19:42 WBC RBC Hgb Hct MCV MCH MCHC RDW Plt Count MPV Prelim Diff (Auto) Neut % (Auto) Lymph % (Auto) Pope % (Auto) Eos % (Auto) Baso % (Auto) Neut # (Auto) Lymph # (Auto) Pope # (Auto) Eos # (Auto) Baso # (Auto) WBC Differential Seg Neuts % (Manual) Band Neuts % (Manual) Monocytes % (Manual) Abs Neuts (Manual) Differential Comment Platelet Estimate Platelet Morphology PT INR APTT Sodium 149 H Potassium 3.4 L Chloride 116 H Carbon Dioxide 20.6 L Anion Gap 12 BUN 25 H Creatinine 1.13 Estimated GFR 66 L POC Glucose 123 H 127 H Random Glucose 116 H Hemoglobin A1c Calcium 8.5 Phosphorus 2.4 L Magnesium 2.0 Total Bilirubin 3.3 H AST 49 H ALT 22 Alkaline Phosphatase 68 Ammonia Troponin I Total Protein 7.0 D Albumin 3.3 L TSH Urine Color Urine Clarity Urine pH Ur Specific [place] Urine Protein Urine Glucose (UA) Urine Ketones Urine Occult Blood Urine Nitrate Urine Bilirubin Urine Urobilinogen Ur Leukocyte Esterase Urine RBC Urine WBC Hyaline Casts Urine Mucus Micro UA Comment Ur Microscopic Review Urine Culture Comments Nasal Screen MRSA (PCR) 12/17/18 12/18/18 12/18/18 21:19 08:09 08:09 WBC 30.1 H RBC 4.67 Hgb 14.1 Hct 39.9 MCV 85.3 MCH 30.2 MCHC 35.4 RDW 15.1 Plt Count 289 MPV 7.8 Prelim Diff (Auto) Slide review pending Neut % (Auto) 93.5 H Lymph % (Auto) 1.8 L Pope % (Auto) 4.5 Eos % (Auto) 0.0 Baso % (Auto) 0.2 Neut # (Auto) 28.1 H Lymph # (Auto) 0.6 L Pope # (Auto) 1.3 H Eos # (Auto) 0.0 Baso # (Auto) 0.1 WBC Differential Manual diff final Seg Neuts % (Manual) 95 H Band Neuts % (Manual) 1 Monocytes % (Manual) 4 Abs Neuts (Manual) 28.9 H Differential Comment . Platelet Estimate Normal Platelet Morphology Normal PT INR APTT Sodium 150 H Potassium 3.2 L Chloride 119 H Carbon Dioxide 21.0 Anion Gap 10 BUN 31 H Creatinine 1.19 Estimated GFR 62 L POC Glucose 138 H Random Glucose 135 H Hemoglobin A1c Calcium 8.4 L Phosphorus 2.8 Magnesium 1.9 Total Bilirubin 3.8 H AST 52 H ALT 20 Alkaline Phosphatase 71 Ammonia Troponin I Total Protein 7.1 Albumin 3.1 L TSH Urine Color Urine Clarity Urine pH Ur Specific [place] Urine Protein Urine Glucose (UA) Urine Ketones Urine Occult Blood Urine Nitrate Urine Bilirubin Urine Urobilinogen Ur Leukocyte Esterase Urine RBC Urine WBC Hyaline Casts Urine Mucus Micro UA Comment Ur Microscopic Review Urine Culture Comments Nasal Screen MRSA (PCR) 12/18/18 08:24 WBC RBC Hgb Hct MCV MCH MCHC RDW Plt Count MPV Prelim Diff (Auto) Neut % (Auto) Lymph % (Auto) Pope % (Auto) Eos % (Auto) Baso % (Auto) Neut # (Auto) Lymph # (Auto) Pope # (Auto) Eos # (Auto) Baso # (Auto) WBC Differential Seg Neuts % (Manual) Band Neuts % (Manual) Monocytes % (Manual) Abs Neuts (Manual) Differential Comment Platelet Estimate Platelet Morphology PT INR APTT Sodium Potassium Chloride Carbon Dioxide Anion Gap BUN Creatinine Estimated GFR POC Glucose 125 H Random Glucose Hemoglobin A1c Calcium Phosphorus Magnesium Total Bilirubin AST ALT Alkaline Phosphatase Ammonia Troponin I Total Protein Albumin TSH Urine Color Urine Clarity Urine pH Ur Specific [place] Urine Protein Urine Glucose (UA) Urine Ketones Urine Occult Blood Urine Nitrate Urine Bilirubin Urine Urobilinogen Ur Leukocyte Esterase Urine RBC Urine WBC Hyaline Casts Urine Mucus Micro UA Comment Ur Microscopic Review Urine Culture Comments Nasal Screen MRSA (PCR) Result Diagrams: 12/18/18 08:09 12/18/18 08:09 Imaging: Head CTA 12/16/18 12:04 CONCLUSION: 1. Negative for major branch vessel occlusion. . . Neck CTA 12/16/18 12:04 CONCLUSION: 1. Minimal atherosclerotic calcific vascular disease. No hemodynamically significant stenosis Head MRI 12/16/18 12:20 CONCLUSION: 1. Restricted diffusion and left MCA distribution indicating acute left MCA infarct. 2. No evidence of mass effect or herniation. Findings were discussed with Dr. Moore by Dr. Darden. Head CT 12/18/18 06:00 CONCLUSION: 1. Evolving left middle cerebral artery distribution infarct. 2. No midline shift. . . Chest X-Ray 12/18/18 09:33 CONCLUSION: Suspected edema in the mid and lower lungs. Patient/Family Conference Family Conference Location: Bedside Issues Discussed: * Palliative care role, purpose, approach * Additional medical, psychosocial, and spiritual history * Patients general health, functional status, and cognitive changes in the months leading up to the current hospitalization * Patient/family understanding of the current medical problems * Patient/family understanding of prognosis * Patients goals of care as best understood from advance directives and/or conversations and/or values * Current medical treatment options and benefits/burdens of those options * Likely scenarios comparing ongoing aggressive care with a transition to comfort measures only-discussed most likely need for a PEG tube placement and long-term placement if neurological deficits to not improve which is most likely. Family would not like patient to have a PEG tube home and up in a prison facility. * Questions answered to the best of my ability * Introduced hospice philosophy and benefits * Palliative care contact information provided Assessment and Plan - Disease Oriented Problem List (1) CVA (cerebral vascular accident) (2) Leukocytosis (3) Acute kidney injury (4) Total bilirubin, elevated (5) Tobacco abuse - Symptom Scale (1) Altered mental status 0-10 Scale: Unable to quantify Comment: Most likely from recent subacute left MCA stroke. . (2) Shortness of breath 0-10 Scale: Unable to quantify Comment: Secondary to disease progression. Patient has history of tobacco use and recently had a stroke. . (3) At risk for pain Comment: Patient recently had a stroke. Family reports that he had been complaining of having a headache. According to spouse patient has had chronic back pain on an injury when he was in high school. Patient usually takes Aleve and smokes marijuana for pain control. . (4) Dysphagia 0-10 Scale: Unable to quantify Comment: Secondary to recent stroke. . Pertinent Non-Medical Issues: Psychosocial: Patient was born in [place]. He moved to [place] in 1995. He has been to his current Maria G for 38 years. Patient has never had children. Patient works as a general medical practitioner. Spiritual: [employer]ab[employer]ist maria victoria Legal: Patient has never completed advanced directives. Ethical issues impacting care: None identified at this time. . Important Contacts: Spouse-Maria G Obrien-[phone] Father-Amelia Obrien-[phone] . Prognosis: Mr. Obrien is a 63-year-old who presented to the emergency room on 12/16/18 for evaluation and treatment. According to report from family in the emergency room, patient had not been able to talk and had altered mentation for 3 days prior to presenting to the emergency room. It is also reported that patient has never been to a doctor for many years and he has no known medical history except tobacco use. Patient was not a candidate for parenteral TPA due to late presentation to the emergency room from the time of symptom onset. Patient was aphasic at time of presentation to the emergency room. Follow-up Head CT on showing evolving stroke. Patient remains aphasic, with right-sided hemiplegia, and dysphagic. These neuro deficits will most likely affect patient's quality of life and he would remain at a high risk for further complications, deterioration and decline. Patient spouse with the support of patient's father have made patient a DNR and they do not want to proceed with PEG tube placement. Since goals are comfort oriented, patient is very appropriate for hospice. . Code Status: No Code DNR Plan: PLAN: Legal decision maker: Patient recently had a subacute left MCA stroke and is aphasic with altered mentation. It is not known whether patient will regain capacity to to participate in medical decision making. In accordance to [place] statute, his spouse Camille Cummins will serve as his medical decision maker proxy. Goals: After discussion with patient spouse and patient's father, family have decided to forego any further aggressive treatment and transition patient to comfort oriented care only through hospice services. Hospice consult placed. CODE STATUS: No code DNR/DNI SYMPTOMS: * Altered mental status: Most likely from recent subacute left MCA stroke. Head CT on 12/18/18 showing evolving stroke. Patient remains aphasic with altered mentation, not following simple commands. Continue with neurochecks. * Dysphagia: Following recent subacute left MCA. Speech therapy consulted, recommending n.p.o. failed swallow eval. Family does not want to proceed with PEG tube placement. * Shortness of breath: Secondary to disease progression. Patient has history of tobacco use and is admitted for a stroke. * At risk for pain: History of chronic back pain from an injury when patient was still in high school. Spouse reports that patient takes Aleve and smokes marijuana for pain. Per spouse patient complained of a headache when he was still able to speak. Patient now has right-sided hemiplegia and is bedbound which may be also another source of pain including blood draws. Palliative care will continue to follow the patient during hospital course as condition evolves, to assist patient/decision-maker with understanding of their medical conditions, weighing benefits/burdens of treatment options, for clarification of goals of treatment. Additionally will assist with any symptoms of palliative concern Appreciation Thank you for the opportunity to participate in the care of Christopher Obrien. Attestation Attestation: To help prompt me to consider important information that might be impacting today's encounter and assessment, information from prior notes written by myself or my colleagues may have been "brought forward" into today's note. My signature on this note, however, is an attestation that I personally performed the exam, history, and/or decision-making noted today, and, unless otherwise indicated, the interactions with patient, family, and staff as well as the review of records all occurred today. I also attest that the listed assessment and stated plan reflect my best clinical judgment today based on the combination of historical information, prior notes, and today's exam/ interactions. When time spent is documented, it refers only to time spent today by the signer, or if indicated, combined time spent today by collaborating physician/nurse practitioner.
[2018-12-18 16:07] VITALS: TEMP 98.2
[2018-12-18] MEDS ORDERED: Labetalol HCl Inj 20 MG/4 ML Vial IV.PUSH PRN (16:15)
[2018-12-18] MEDS: Multivitamin Inj 10 ML, Thiamine Inj 100 MG, Folic Acid Inj 1 MG in Sodium Chlor 0.9% I... IV.SIG SCH (16:21)
[2018-12-18 17:09] VITALS: BP 147/93; PULSE 101; RESP 34; O2SAT 97
--- NOTE | 2018-12-18 20:51 | MG ---
cc: Aaron Varghese MD DATE: 12/18/2018. EEG NUMBER: [id number] ROOM: [id number] PROCEDURE NOTE: Aphasic right hemiparesis large left stroke. There is some attenuation of the left hemisphere and some mild slowing compared to the right. There is a lot of muscle artifact, but I do not see any seizure activity coming out of the left hemisphere. Photic stimulation and hyperventilation not performed. IMPRESSION: Some slowing and attenuation on the left, due to the stroke, but no seizure activity. Aaron Varghese MD DJM/ts/ll , 07:32 PM , 07:37 PM
== END 2018-12-18 17:40 | disposition hospice, inpatient (51) | DRG 65 ==
LOC: NEPD 10:36 → NEDA 13:33 → HIMC 15:00 → NEDA 15:17
PROVIDERS: ADMIT Internal Medicine Critical Care Medicine; ATTEND Internal Medicine Critical Care Medicine
CPT/HCPCS: 70450; 70496; 70498; 70551; 71010; 71045; 80053; 81001; 82140; 82948; 82962; 83036; 83735; 84100; 84443; 84484; 85025; 85610; 85730; 87040; 87641; 90774; 90784; 92522; 92610; 93005; 93306; 94150; 94664; 95819; 96374; 97110; 97162; 97167; 99285; C8952; C9113; G0195; J1644; J2060; J2250; J2543; J3411; J3475; J7030; J7040; J7050; J7070; P9612; Q9967